=== PATIENT | female | born 1975 | race Caucasian/White ===

== ENCOUNTER → 2016-04-10 | Outpatient (REF) | payer OTHER ==
[2016-04-10 13:07] LABS: ALBUMIN 3.8 GM/DL (3.2-5.2); ALBUMIN/GLOBULIN RATIO 0.93 (1.00-1.93); ALKALINE PHOSPHATASE 83 U/L (45-117); ALT/SGPT 24 U/L (12-78); ANION GAP 13 MEQ/L (8-16); AST/SGOT 13 U/L (15-37); BILIRUBIN,TOTAL 0.3 MG/DL (0.2-1.0); BLOOD UREA NITROGEN 15 MG/DL (7-18); CALCIUM LEVEL 9.1 MG/DL (8.5-10.1); CARBON DIOXIDE LEVEL 25 MEQ/L (21-32); CHLORIDE LEVEL 104 MEQ/L (98-107); CHOLESTEROL LEVEL 176 MG/DL (<200); CREATININE FOR GFR 0.92 MG/DL (0.55-1.02); GLOMERULAR FILTRATION RATE > 60.0 (>58); GLUCOSE, FASTING 226 MG/DL (70-105); POTASSIUM SERUM 4.3 MEQ/L (3.5-5.1); SODIUM LEVEL 142 MEQ/L (136-145); TOTAL PROTEIN 7.9 GM/DL (6.4-8.2); TRIGLYCERIDES LEVEL 240 MG/DL (<150)
[2016-04-10 13:18] LABS: BASO % 0.4 % (0.0-1.0); EOS # 0.2 K/mm3 (0.0-0.50); EOS % 2.7 % (0.0-3.0); LARGE UNSTAINED CELL # 0.2 K/mm3 (0.0-0.4); LYMPH # 2.3 K/mm3 (1.5-4.5); LYMPH % 31.3 % (24.0-44.0); MEAN CORPUSCULAR HGB CONC 32.9 g/dl (32.0-36.5); MEAN CORPUSCULAR VOLUME 88.2 fl (80.0-96.0); MONO # 0.6 K/mm3 (0.0-0.8); MONO % 7.5 % (0.0-5.0); NEUTROPHILS # 4.2 K/mm3 (1.8-7.7); NEUTROPHILS % 56.1 % (36.0-66.0); PLATELET COUNT, AUTOMATED 335 k/mm3 (150-450); RED CELL DISTRIBUTION WIDTH 13.4 % (11.5-14.5); WHITE BLOOD COUNT 7.4 K/mm3 (4.0-10.0)
== END ==
LOC: M SFHCADAM 08:13
PROVIDERS: ATTEND Physician Assistant Medical
DX: E11.9 Type 2 diabetes mellitus without complications (principal)

== ENCOUNTER → 2016-07-13 | Outpatient (REF) | payer OTHER, SELFPAY ==
[2016-07-13 13:11] LABS: ALBUMIN 3.5 GM/DL (3.2-5.2); ALBUMIN/GLOBULIN RATIO 0.95 (1.00-1.93); ALKALINE PHOSPHATASE 67 U/L (45-117); ALT/SGPT 24 U/L (12-78); ANION GAP 9 MEQ/L (8-16); AST/SGOT 17 U/L (15-37); BILIRUBIN,TOTAL 0.3 MG/DL (0.2-1.0); BLOOD UREA NITROGEN 12 MG/DL (7-18); CALCIUM LEVEL 9.2 MG/DL (8.5-10.1); CARBON DIOXIDE LEVEL 28 MEQ/L (21-32); CHLORIDE LEVEL 106 MEQ/L (98-107); CREATININE FOR GFR 0.75 MG/DL (0.55-1.02); GLOMERULAR FILTRATION RATE > 60.0 (>58); GLUCOSE, FASTING 87 MG/DL (70-105); POTASSIUM SERUM 4.4 MEQ/L (3.5-5.1); SODIUM LEVEL 143 MEQ/L (136-145); TOTAL PROTEIN 7.2 GM/DL (6.4-8.2)
== END ==
LOC: M SFHCADAM 08:22
PROVIDERS: ATTEND Physician Assistant Medical
DX: E11.9 Type 2 diabetes mellitus without complications (principal)

== ENCOUNTER → 2016-07-16 | Outpatient (REF) | payer OTHER, SELFPAY | LOC: M LAB REF 17:06 | PROVIDERS: ATTEND Physician Assistant Medical | DX: R39.9 Unspecified symptoms and signs involving the genitourinary system (principal) ==

== ENCOUNTER → 2016-10-02 | Outpatient (REF) | payer OTHER ==
[~2016-10-02] MED LIST: ACET1TAB17 PO; AMLO10TA2 PO; ASPI81TA85 PO; CLAR10CA3 PO; DITR5TAB PO; HUMA100I3 SC; KETO10TAB PO; LISI40TAB PO; MACR100C43 PO; METF10004 PO; METO1TAB32 PO; NORCOTAB PO; OXYC1TAB23 PO; PERC5TAB12 PO; PROT20TA11 PO; SIMV40TA2 PO; TOPR50TA PO; TOUJ1.2I SC
== END ==
LOC: M LAB REF 16:27
PROVIDERS: ATTEND Physician Assistant Medical
DX: N39.0 Urinary tract infection, site not specified (principal)

== ENCOUNTER 2016-10-09 16:04 | Emergency (ER) | payer OTHER, SELFPAY ==
[~2016-10-09] VITALS: Ht 149.9 cm; Wt 103.1 kg
[2016-10-09] MEDS ORDERED: MACR100C43 PO (16:37)
[2016-10-09] MEDS ORDERED: HUMA100I3 SC (16:37)
[2016-10-09] MEDS ORDERED: METF10004 PO (16:37)
[2016-10-09] MEDS ORDERED: TOUJ1.2I SC (16:37)
[2016-10-09] MEDS ORDERED: PROT20TA11 PO (16:37)
[2016-10-09] MEDS ORDERED: CLAR10CA3 PO (16:37)
[2016-10-09] MEDS ORDERED: METO1TAB32 PO (16:37)
[2016-10-09] MEDS ORDERED: AMLO10TA2 PO (16:37)
[2016-10-09] MEDS ORDERED: SIMV40TA2 PO (16:37)
[2016-10-09] MEDS ORDERED: LISI40TAB PO (16:37)
[2016-10-09] MEDS ORDERED: ASPI81TA85 PO (16:37)
[2016-10-09] MEDS ORDERED: KETOROLAC 30 MG/ML VIAL (J1885) IV ONE (17:15)
[2016-10-09] MEDS ORDERED: NS 1,000 ML IV ONE (17:15)
[2016-10-09] MEDS ORDERED: ONDANSETRON 4MG/2ML VIAL (J2405) IV ONE (17:15)
[2016-10-09 17:31] LABS: BASO % 0.4 % (0.0-1.0); EOS # 0.2 K/mm3 (0.0-0.50); EOS % 2.5 % (0.0-3.0); LARGE UNSTAINED CELL # 0.1 K/mm3 (0.0-0.4); LARGE UNSTAINED CELL % 1.6 % (0.0-4.0); LYMPH # 2.6 K/mm3 (1.5-4.5); MEAN CORPUSCULAR HEMOGLOBIN 29.7 pg (27.0-33.0); MEAN CORPUSCULAR HGB CONC 33.6 g/dl (32.0-36.5); MEAN CORPUSCULAR VOLUME 88.3 fl (80.0-96.0); MONO # 0.4 K/mm3 (0.0-0.8); MONO % 5.6 % (0.0-5.0); NEUTROPHILS # 4.2 K/mm3 (1.8-7.7); NEUTROPHILS % 55.9 % (36.0-66.0); PLATELET COUNT, AUTOMATED 294 k/mm3 (150-450); RED CELL DISTRIBUTION WIDTH 13.1 % (11.5-14.5); WHITE BLOOD COUNT 7.6 K/mm3 (4.0-10.0)
[2016-10-09 17:59] LABS: ALBUMIN 3.7 GM/DL (3.2-5.2); ALKALINE PHOSPHATASE 83 U/L (45-117); ALT/SGPT 20 U/L (12-78); ANION GAP 10 MEQ/L (8-16); AST/SGOT 12 U/L (15-37); BILIRUBIN,DIRECT < 0.1 MG/DL (0.0-0.2); BILIRUBIN,TOTAL 0.2 MG/DL (0.2-1.0); BLOOD UREA NITROGEN 15 MG/DL (7-18); CALCIUM LEVEL 9.3 MG/DL (8.5-10.1); CARBON DIOXIDE LEVEL 27 MEQ/L (21-32); CHLORIDE LEVEL 101 MEQ/L (98-107); CREATININE FOR GFR 0.87 MG/DL (0.55-1.02); GLOMERULAR FILTRATION RATE > 60.0 (>58); GLUCOSE, FASTING 230 MG/DL (70-105); POTASSIUM SERUM 4.1 MEQ/L (3.5-5.1); SODIUM LEVEL 138 MEQ/L (136-145); TOTAL PROTEIN 7.4 GM/DL (6.4-8.2)
--- NOTE | 2016-10-09 18:25 | REP ---
CT abdomen pelvis without contrast: 10/09/2016: Comparison: 02/11/2016. Clinical history: Left flank pain. History of renal calculus. Findings: Noncontrast renal stone protocol was utilized. CT abdomen: Lung bases clear. Heart not enlarged. as no pericardial thickening or effusion. Some mild fatty infiltration of the liver but no gross hepatosplenomegaly. Gallbladder shows no calcified stone or mass. There is no biliary dilatation or ascites in the upper abdomen. Pancreas unremarkable. Adrenal glands intact. Stomach without hiatal hernia, collapsed, appendix and right colon to distal left colon were unremarkable. Small bowel loops unremarkable. Lung window review of all CT slice levels shows no free air or sign of abscess. The aorta is without aneurysm has as a few calcifications distally. No periaortic other retroperitoneal lymphadenopathy. There is lobation of both kidneys. The tiny calcifications in pyramids and lower pole on the right kidney lobation, but no hydronephrosis, hydroureter or ureteral stone/dilatation on the right. The left kidney shows that the 13 mm stone on the February 2016 study has moved from the lower pole to the renal pelvis and is now almost 17 mm. It is still is not causing any significant hydronephrosis. I do not see hydroureter or ureteral stone on that left side. The bone windows show degenerative disc changes at L5, S1 with vacuum phenomenon and posterior osteophytes, disc bulge. Lower thoracic levels were intact. Visualized ribs were intact. CT pelvis: The bony hips, pelvis, sacrum, SI joints and lumbosacral junction were normal for age with very minimal degenerative changes of the hips. Bladder without wall thickening, stone or mass, ureteral dilatation or stone. Uterus anteverted, not enlarged and no adnexal mass or pelvic free fluid. Distal left colon, sigmoid and rectum without colitis or diverticulitis. No pelvic lymphadenopathy. No ventral or inguinal hernia nor pathologic inguinal adenopathy. Appendix is seen and normal. Impression: 1. There is a 17 mm stone now arranged horizontally in the renal pelvis on the left kidney previously was more vertically oriented, in the lower pole and measured 13 mm. No hydronephrosis or hydroureter on either side. No definite collecting system stones on the right with a couple of tiny pyramid stones. 2. No colitis, diverticulitis, stricture or mass. Appendix seen and normal. Solid organs upper abdomen are unremarkable. Gallbladder without calcified stone or mass and no other significant finding. Signed by Marco A Hodge MD 10/09/2016 09:27 P
[2016-10-09] MEDS ORDERED: NORCOTAB PO (18:33)
[2016-10-09] MEDS ORDERED: KETO10TAB PO (18:33)
[2016-10-09 19:39] VITALS: BP 107/63
[2016-10-09] MEDS ORDERED: NORCO, ANEXSIA 5/325MG TABLET (HYDROcodone/ACETAMINOPHEN) PO ONE (20:00)
[2016-11-03] MEDS ORDERED: TOPR50TA PO (13:26)
== END 2016-10-09 19:55 | disposition home or self-care (01) ==
LOC: M ED 16:04
DX: N20.0 Calculus of kidney (principal); E11.9 Type 2 diabetes mellitus without complications; I10 Essential (primary) hypertension; Z87.442 Personal history of urinary calculi; Z87.891 Personal history of nicotine dependence; Z79.82 Long term (current) use of aspirin; Z79.4 Long term (current) use of insulin; Z79.899 Other long term (current) drug therapy
CPT/HCPCS: 74176; 80048; 80076; 81001; 83690; 85025; 96374; 96375; 99283; J1885; J2405

== ENCOUNTER → 2016-10-18 | Outpatient (REF) | payer OTHER | LOC: M SMT 13:01 | PROVIDERS: ATTEND Nurse Practitioner Women's Health | DX: Z01.818 Encounter for other preprocedural examination (principal); N20.0 Calculus of kidney ==

== ENCOUNTER → 2016-11-02 | Outpatient (CLI) | payer OTHER ==
[2016-11-02 13:06] LABS: MEAN CORPUSCULAR HEMOGLOBIN 29.3 pg (27.0-33.0); MEAN CORPUSCULAR HGB CONC 33.7 g/dl (32.0-36.5); MEAN CORPUSCULAR VOLUME 87.1 fl (80.0-96.0); RED CELL DISTRIBUTION WIDTH 13.3 % (11.5-14.5); WHITE BLOOD COUNT 7.1 K/mm3 (4.0-10.0)
[2016-11-02 13:11] LABS: INR 0.97
--- NOTE | 2016-11-02 13:25 | ECGEPIP ---
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
--- NOTE | 2016-11-02 13:29 | REP ---
CHEST X-RAY: TWO VIEWS. HISTORY: Kidney calculus. COMPARISON CHEST X-RAY: September 11, 2015 FINDINGS: The lungs are well inflated and clear. The pleural angles are sharp. Heart size is normal. Pulmonary vasculature is not increased. There are some degenerative changes in the thoracic spine. IMPRESSION: No active disease. Signed by Bola Vang MD 11/02/2016 02:04 P
[2016-11-02 13:43] LABS: ANION GAP 10 MEQ/L (8-16); BLOOD UREA NITROGEN 13 MG/DL (7-18); CARBON DIOXIDE LEVEL 27 MEQ/L (21-32); CHLORIDE LEVEL 105 MEQ/L (98-107); CREATININE FOR GFR 0.86 MG/DL (0.55-1.02); GLOMERULAR FILTRATION RATE > 60.0 (>58); GLUCOSE, FASTING 207 MG/DL (70-105); POTASSIUM SERUM 4.2 MEQ/L (3.5-5.1); SODIUM LEVEL 142 MEQ/L (136-145)
== END ==
LOC: M LAB 12:27
PROVIDERS: ATTEND Nurse Practitioner Women's Health
DX: Z01.818 Encounter for other preprocedural examination (principal); N20.0 Calculus of kidney

== ENCOUNTER 2016-11-16 21:35 | Emergency (ER) | payer OTHER ==
[~2016-11-16] VITALS: Ht 149.9 cm; Wt 99.5 kg
[~2016-11-16 21:35] MED LIST changes: -ACET1TAB17 PO; -DITR5TAB PO; -OXYC1TAB23 PO; -PERC5TAB12 PO
[2016-11-16] MEDS ORDERED: NS 1,000 ML IV ONE (23:15)
[2016-11-16] MEDS ORDERED: ONDANSETRON 4MG/2ML VIAL (J2405) IV ONE (23:15)
[2016-11-16] MEDS ORDERED: MORPHINE 4 MG/ML 1ML SYRINGE IV ONE (23:15)
[2016-11-16 23:32] LABS: BASO % 0.3 % (0.0-1.0); EOS # 0.1 K/mm3 (0.0-0.50); LARGE UNSTAINED CELL # 0.1 K/mm3 (0.0-0.4); LARGE UNSTAINED CELL % 1.1 % (0.0-4.0); LYMPH # 2.2 K/mm3 (1.5-4.5); LYMPH % 21.2 % (24.0-44.0); MEAN CORPUSCULAR HGB CONC 32.4 g/dl (32.0-36.5); MEAN CORPUSCULAR VOLUME 89.5 fl (80.0-96.0); MONO # 0.6 K/mm3 (0.0-0.8); MONO % 6.2 % (0.0-5.0); NEUTROPHILS % 70.3 % (36.0-66.0); PLATELET COUNT, AUTOMATED 317 k/mm3 (150-450); RED CELL DISTRIBUTION WIDTH 13.7 % (11.5-14.5); WHITE BLOOD COUNT 9.9 K/mm3 (4.0-10.0)
[2016-11-17 00:16] LABS: CALCIUM LEVEL 9.2 MG/DL (8.5-10.1); CREATININE FOR GFR 1.31 MG/DL (0.55-1.02); GLOMERULAR FILTRATION RATE 47.4 (>58); POTASSIUM SERUM 4.5 MEQ/L (3.5-5.1)
[2016-11-17] MEDS ORDERED: ONDANSETRON 4 MG ORAL DISINTEGRATING TAB (S0181) PO ONE (00:45)
[2016-11-17] MEDS ORDERED: OXYCODONE/APAP 5MG/325MG(BULK FOR ED) 1 TABLET PO ONE (00:45)
[2016-11-17 00:56] VITALS: BP 143/88
[2016-11-17] MEDS ORDERED: PERC5TAB12 PO (10:22)
--- NOTE | 2016-11-17 11:12 | REP ---
Clinical: Status post stent. Technique: Two supine views of the abdomen and pelvis. Findings: A left ureteral stent extends from the bladder and is externalized through the kidney via left flank. The bowel gas pattern is nonspecific. No obvious ureteral or renal calculi are identified. Skeletal structures are intact. Impression: Left ureteral stent. Signed by Tom Lopez MD 11/17/2016 08:41 A
[2016-11-18] MEDS ORDERED: DITR5TAB PO (11:22)
[2016-11-18] MEDS ORDERED: ACET1TAB17 PO (11:22)
[2016-11-18] MEDS ORDERED: OXYC1TAB23 PO (11:22)
== END 2016-11-17 00:59 | disposition home or self-care (01) ==
LOC: M ED 21:35
DX: N32.89 Other specified disorders of bladder (principal); N20.0 Calculus of kidney; I10 Essential (primary) hypertension; E11.9 Type 2 diabetes mellitus without complications; F33.9 Major depressive disorder, recurrent, unspecified; F41.9 Anxiety disorder, unspecified; Z79.899 Other long term (current) drug therapy; Z79.4 Long term (current) use of insulin; Z79.82 Long term (current) use of aspirin; Z79.52 Long term (current) use of systemic steroids
CPT/HCPCS: 74000; 80048; 81001; 85025; 87086; 96374; 99283; J2405

== ENCOUNTER 2016-11-17 10:03 | Inpatient (IN) | payer OTHER ==
[~2016-11-17] VITALS: Ht 149.9 cm; Wt 101.6 kg
[~2016-11-17 10:03] MED LIST changes: +GLYCOPYRROLATE INJ 0.2 MG/ML 2 ML VIAL As Ordered ONE; +LIDOCAINE 2% INJ 100 MG/5 ML SDV (FOR ANES.) As Ordered ONE; +LISINOPRIL 40 MG TAB PO SCH; +MIDAZOLAM INJ 2 MG/2 ML VIAL (J2250) As Ordered ONE; +NEOSTIGMINE 1MG/ML 5 ML SYRINGE (J2710) As Ordered ONE; +ONDANSETRON 4MG/2ML VIAL (J2405) As Ordered ONE; +PROPOFOL 200 MG/20 ML VIAL As Ordered ONE; +ROCURONIUM BROMIDE 50 MG/5 ML VIAL/SYRINGE As Ordered ONE; +SIMVASTATIN 40 MG TAB PO SCH; +fentaNYL 100 MCG/2 ML INJECTION (J3010) As Ordered ONE
[2016-11-17] MEDS ORDERED: LIDOCAINE 1% MDV 20ML VIAL SQ ONE (10:15)
[2016-11-17] MEDS ORDERED: LR 1,000 ML IV ONE (10:15)
[2016-11-17] MEDS ORDERED: PERC5TAB12 PO (10:22)
[2016-11-17] MEDS ORDERED: MORPHINE 2 MG/ML 1ML SYRINGE As Ordered ONE (10:29)
[2016-11-17 10:36] LABS: CONTROL LINE UCG INT CTR LINE PRESENT
[2016-11-17] MEDS ORDERED: HumaLOG INSULIN (NovoLOG) PER UNIT As Ordered ONE (10:43)
[2016-11-17] MEDS ORDERED: MORPHINE 2 MG/ML 1ML SYRINGE IV ONE ×2 (10:45→11:00)
[2016-11-17] MEDS ORDERED: METOPROLOL TART 25 MG TABLET As Ordered ONE (10:45)
[2016-11-17] MEDS ORDERED: METOPROLOL SUCC *XL* 25MG TAB (TopROL *XL*) As Ordered ONE (10:48)
[2016-11-17] MEDS ORDERED: METOPROLOL SUCC (TopROL XL) 50MG **XL** TAB PO ONE (11:00)
[2016-11-17] MEDS ORDERED: METOPROLOL SUCC *XL* 25MG TAB (TopROL *XL*) PO ONE (11:00)
[2016-11-17] MEDS ORDERED: HumaLOG INSULIN (NovoLOG) PER UNIT SC ONE (11:00)
[2016-11-17] MEDS ORDERED: CONRAY-60 60% 50ML VIAL (Q9961) As Ordered ONE (12:05)
[2016-11-17] MEDS ORDERED: GLUCOSE 4 GM CHEW TABLET PO PRN (12:30)
[2016-11-17] MEDS ORDERED: GLUCAGON FOR INJ 1 MG VIAL (J1610) SC PRN (12:30)
[2016-11-17] MEDS ORDERED: PERCOCET 5MG/325MG TAB PO PRN ×2 (12:30→15:00)
[2016-11-17] MEDS ORDERED: DEXTROSE 50% 50 ML SYRINGE IV PRN (12:30)
[2016-11-17] MEDS ORDERED: MORPHINE 2 MG/ML 1ML SYRINGE IV PRN (12:30)
[2016-11-17] MEDS ORDERED: ACETAMINOPHEN TAB 650MG DOSE (2X325MG) PO PRN (12:30)
[2016-11-17] MEDS ORDERED: HYDROmorphone HCL 2 MG/ML 1ML VIAL (J1170) As Ordered ONE (13:18)
[2016-11-17] MEDS ORDERED: METOCLOPRAMIDE INJ 10MG/2ML VIAL (J2765) As Ordered ONE (14:44)
[2016-11-17 14:47] LABS: MEAN CORPUSCULAR HEMOGLOBIN 28.3 pg (27.0-33.0); MEAN CORPUSCULAR HGB CONC 31.7 g/dl (32.0-36.5); MEAN CORPUSCULAR VOLUME 89.3 fl (80.0-96.0); RED CELL DISTRIBUTION WIDTH 13.7 % (11.5-14.5)
[2016-11-17] MEDS ORDERED: LR 1,000 ML IV SCH (15:00)
[2016-11-17] MEDS ORDERED: METOCLOPRAMIDE INJ 10MG/2ML VIAL (J2765) IV PRN (15:00)
[2016-11-17] MEDS ORDERED: ONDANSETRON 4MG/2ML VIAL (J2405) IV PRN (15:00)
[2016-11-17] MEDS ORDERED: fentaNYL 100 MCG/2 ML INJECTION (J3010) IV PRN (15:00)
[2016-11-17 15:04] LABS: CALCIUM LEVEL 8.6 MG/DL (8.5-10.1); CREATININE FOR GFR 1.3 MG/DL (0.55-1.02); GLOMERULAR FILTRATION RATE 47.8 (>58); POTASSIUM SERUM 4.4 MEQ/L (3.5-5.1)
[2016-11-17] MEDS: HYDROmorphone HCL 1 MG/ML SYRINGE (J1170) IV PRN ×2 (15:10→15:33)
[2016-11-17] MEDS ORDERED: diphenhydrAMINE INJ 50MG/ML VIAL (J1200) IV PRN (15:15)
--- NOTE | 2016-11-17 15:21 | REP ---
PYELOGRAM: HISTORY: Left renal stone. 1 minute 56 seconds of fluoroscopy time is reported. FINDINGS: A sequence of six fluoroscopically obtained last image hold spot radiographs of the abdomen document percutaneous nephro-ureterogram and large tract stone extraction access. A ureteral stent is noted in place on the final film. No laterality markers are visible. Signed by Bola Vang MD 11/17/2016 04:38 P
[2016-11-17] MEDS: NS 1,000 ML IV SCH ×2 (16:50→19:48)
[2016-11-17] MEDS: ONDANSETRON 4MG/2ML VIAL (J2405) IV PRN (16:50)
--- NOTE | 2016-11-17 16:58 | RO ---
DATE OF PROCEDURE: 11/17/2016 PREPROCEDURE DIAGNOSIS: Left kidney stone. POSTPROCEDURE DIAGNOSIS: Left kidney stone. PROCEDURE: Left percutaneous nephrolithotomy, left antegrade nephrostogram, left ureteral stent placement. SURGEON: Finn Miller MD COLLECTIONS AND ARCHIVES DIRECTOR: None. ANESTHESIA: General. OPERATIVE INDICATIONS: This is a 41-year-old female who was found to have an approximately 1.7 cm left renal pelvic stone. She previously had a left nephroureteral stent placed. She was brought to the operating room today for the above listed procedure. DESCRIPTION OF PROCEDURE: Patient was brought to the operating room and general anesthesia was induced. Prophylactic antibiotics were infused. She then had a Carlos catheter placed under sterile conditions. She was then placed in the prone position with all pressure points appropriately padded. She was then prepped and draped in the usual sterile fashion in preparation for a left percutaneous nephrolithotomy. The previously placed left nephroureteral stent was then utilized to advance a Super Stiff Guidewire down the left collecting system. The nephroureteral stent was then removed leaving the wire in place. Next, an approximately 3-4 cm skin incision was made adjacent to the wire. I then advanced a dual lumen ureteral catheter over the wire into the left collecting system. An antegrade nephrostogram was performed and was negative for extravasation. It was notable for a the filling defect associated with the stone. Of note, the stone was radiolucent. At this point, the other lumen of the catheter was utilized to advance a Sensor wire down the left collecting system. The dual lumen ureteral catheter was then removed leaving both wires in place. The Sensor was then secured to the drape to serve as a safety wire. We then utilized the Super Stiff wire to advance a balloon dilator down into the left renal pelvis. The balloon was then inflated and left in place for a few seconds. We then advanced an access sheath over the balloon into the left collecting system. The balloon was then let down and removed leaving the access sheath and the wire in place. Next, we went in the access sheath with the nephroscope and the kidney was thoroughly examined and a large stone was seen in the renal pelvis. The stone was then fragmented into several small pieces and suctioned out using a CyberWand. We then examined the kidney thoroughly with the nephroscope as well as a flexible cystoscope and no additional stone fragments were seen. At this point, the nephroscope was removed and a 7 Guamanian x 22-32 cm JJ ureteral stent was advanced over the wire down into the left collecting system. The wire was then removed and there were adequate curls of the stent in the left renal pelvis and in the bladder. At this point, the access sheath was then removed and the Sensor wire was utilized to advance an 18 [place]ian [place] tip catheter into the left renal pelvis. The balloon was then inflated with about 3 mL of contrast. The wire was then removed and an antegrade nephrostogram was shot through the [place] tip catheter and it was negative for extravasation. It confirmed that the [place] catheter was in the correct place. The [place] tip catheter was then set to gravity drainage and was secured to the skin with a #3-0 silk suture. Dressings were then applied and this marked conclusion of the procedure. The patient was then taken out of the prone position, awakened from anesthesia and transported to the recovery room in stable condition. ESTIMATED BLOOD LOSS: 50 mL. COMPLICATIONS: None. SPECIMENS: Kidney stone fragments. PLAN: The patient will be admitted to the hospital overnight. She will likely have her nephrostomy catheter and Carlos removed tomorrow. She will be discharged him with a stent in place for the next 2-3 weeks. RUDY
[2016-11-17] MEDS: LORATADINE 10 MG TAB PO SCH (17:02)
[2016-11-17] MEDS: DOCUSATE SODIUM 100 MG CAP PO SCH ×2 (17:03→21:44)
[2016-11-17] MEDS: METOPROLOL SUCC (TopROL XL) 50MG **XL** TAB PO SCH (17:03)
[2016-11-17 17:08] VITALS: BP 168/78
[2016-11-17] MEDS ORDERED: SIMVASTATIN 40 MG TAB PO SCH ×2 (17:08→21:00)
[2016-11-17] MEDS: PANTOPRAZOLE 40MG TAB (PROTONIX) PO SCH ×2 (17:10→21:44)
[2016-11-17 17:30] VITALS: BP 153/79
[2016-11-17] MEDS ORDERED: PROMETHAZINE INJ 25 MG/ML VIAL (J2550) IV PRN (18:15)
[2016-11-17 18:30] VITALS: BP 144/81
[2016-11-17] MEDS: HumaLOG INSULIN (NovoLOG) PER UNIT SC SCH (18:32)
[2016-11-17] MEDS: amLODIPine 10 MG TAB PO SCH (18:33)
[2016-11-17] MEDS: ceFAZolin SOD 1 GM in D5W MINI-BAG PLUS 50 ML IV SCH (19:48)
[2016-11-17] MEDS: PERCOCET 5MG/325MG TAB PO PRN (19:48)
[2016-11-17] MEDS ORDERED: LISINOPRIL 40 MG TAB PO SCH (21:00)
[2016-11-17 22:00] VITALS: BP 134/77
[2016-11-17] MEDS: oxyBUTYnin 5 MG TAB PO PRN (22:55)
[2016-11-18] MEDS: NS 1,000 ML IV SCH (01:48)
[2016-11-18] MEDS: ceFAZolin SOD 1 GM in D5W MINI-BAG PLUS 50 ML IV SCH (05:21)
[2016-11-18] MEDS: PERCOCET 5MG/325MG TAB PO PRN ×3 (05:21→14:53)
[2016-11-18] MEDS: ONDANSETRON 4MG/2ML VIAL (J2405) IV PRN (05:22)
[2016-11-18 05:58] LABS: MEAN CORPUSCULAR HEMOGLOBIN 29.4 pg (27.0-33.0); MEAN CORPUSCULAR HGB CONC 33.2 g/dl (32.0-36.5); MEAN CORPUSCULAR VOLUME 88.5 fl (80.0-96.0); RED CELL DISTRIBUTION WIDTH 13.8 % (11.5-14.5); WHITE BLOOD COUNT 8.6 K/mm3 (4.0-10.0)
[2016-11-18 06:00] VITALS: BP 116/55
[2016-11-18 06:31] LABS: ANION GAP 9 MEQ/L (8-16); BLOOD UREA NITROGEN 11 MG/DL (7-18); CALCIUM LEVEL 8.2 MG/DL (8.5-10.1); CARBON DIOXIDE LEVEL 24 MEQ/L (21-32); CHLORIDE LEVEL 112 MEQ/L (98-107); CREATININE FOR GFR 0.94 MG/DL (0.55-1.02); GLOMERULAR FILTRATION RATE > 60.0 (>58); GLUCOSE, FASTING 154 MG/DL (70-105); POTASSIUM SERUM 3.7 MEQ/L (3.5-5.1); SODIUM LEVEL 145 MEQ/L (136-145)
[2016-11-18] MEDS: HumaLOG INSULIN (NovoLOG) PER UNIT SC SCH ×2 (08:19→12:46)
[2016-11-18 08:20] VITALS: BP 116/55
[2016-11-18] MEDS: amLODIPine 10 MG TAB PO SCH (08:20)
[2016-11-18] MEDS: DOCUSATE SODIUM 100 MG CAP PO SCH (08:20)
[2016-11-18] MEDS: LORATADINE 10 MG TAB PO SCH (08:20)
[2016-11-18] MEDS: METOPROLOL SUCC (TopROL XL) 50MG **XL** TAB PO SCH (08:20)
[2016-11-18] MEDS: PANTOPRAZOLE 40MG TAB (PROTONIX) PO SCH (08:20)
--- NOTE | 2016-11-18 09:57 | IPNPDOC ---
Assessment/Plan Date Seen The patient was seen on 11/18/16. Patient Summary This is a 41 y/o F POD1 s/p left PCNL, doing well. Her Hb is stable. Cr is trending down. UOP has been very good. Plan/VTE VTE Prophylaxis Ordered?: Yes VTE Exclusion Mechanical Proph: N/A:VTE Prophy Ordered Plan/Urinary Catheter Urinary Catheter: D/C Harris (d/c harris in 1 hr if urine remains pink or clearer ) Plan - left nephrostomy catheter removed - d/c harris in 1 hr if urine remains pink or clearer - d/c IVF - ambulate - percocet prn pain - encourage fluids - strict I/Os - SCDs - discharge home later after patient voids Subjective Review oF Systems Chief Complaint The patient is a 41-year-old female admitted with a reason for visit of Left Renal Stone. Events since Last Encounter No acute events. Patient had nausea and a small emesis last night, but nausea has resolved this morning. Her pain is well controlled. The majority of her discomfort is from the catheter. She is tolerating a regular diet. No f/c/ns. Objective Physical Examination General Exam: Alert, Cooperative ENT EXAM: Atraumatic Skin Exam: Nl turgor and temperature Neuro Exam: Normal Speech Psych Exam: Mental status NL, Mood NL Other physical findings left nephrostomy catheter in place draining red urine; harris catheter in place draining pink urine Vital Signs/I&O Vital Signs Date Time Temp Pulse Resp B/P (MAP) Pulse Ox O2 Delivery O2 Flow Rate FiO2 11/18/16 08:27 Room Air 11/18/16 08:20 91 116/55 11/18/16 06:00 98.4 18 95 11/17/16 22:00 2.0 I&O- Last 24 Hours up to 6 AM 11/18/16 06:00 Intake Total 2480 ml Output Total 1950 ml Balance 530 ml Laboratory Data Labs 24H Laboratory Tests 2 11/17/16 10:20: Urine Test NEGATIVE 11/17/16 10:27: Bedside Glucose (Misc Panel) 335H 11/17/16 14:29: Anion Gap 7L, Glomerular Filtration Rate 47.8L, Blood Urea Nitrogen 16, Creatinine 1.30H, Sodium Level 142, Potassium Level 4.4, Chloride Level 108H, Carbon Dioxide Level 27, Calcium Level 8.6 11/17/16 17:48: Bedside Glucose (Misc Panel) 254H 11/17/16 21:19: Bedside Glucose (Misc Panel) 236H 11/18/16 05:45: Anion Gap 9, Glomerular Filtration Rate > 60.0, Blood Urea Nitrogen 11, Creatinine 0.94, Sodium Level 145, Potassium Level 3.7, Chloride Level 112H, Carbon Dioxide Level 24, Calcium Level 8.2L CBC/BMP Laboratory Tests 11/17/16 14:29 Red Blood Count 3.70 L, Mean Corpuscular Volume 89.3, Mean Corpuscular Hemoglobin 28.3, Mean Corpuscular Hemoglobin Concent 31.7 L, Red Cell Distribution Width 13.7, Calcium Level 8.6 11/18/16 05:45 Red Blood Count 3.46 L, Mean Corpuscular Volume 88.5, Mean Corpuscular Hemoglobin 29.4, Mean Corpuscular Hemoglobin Concent 33.2, Red Cell Distribution Width 13.8, Calcium Level 8.2 L FSBS Laboratory Tests Test 11/17/16 10:27 11/17/16 17:48 11/17/16 21:19 Range/Units Bedside Glucose (Misc Panel) 335 254 236 70-105 MG/DL ALYCIA JACKSON MD Nov 18, 2016 09:57
[2016-11-18 10:00] VITALS: BP 104/58
[2016-11-18] MEDS ORDERED: OXYC1TAB23 PO (11:22)
[2016-11-18] MEDS ORDERED: DITR5TAB PO (11:22)
[2016-11-18] MEDS ORDERED: ACET1TAB17 PO (11:22)
[2016-11-18 14:00] VITALS: BP 132/87
[2016-11-18] MEDS: oxyBUTYnin 5 MG TAB PO PRN (15:33)
--- NOTE | 2016-11-20 18:12 | DSES ---
DATE OF ADMISSION: 11/17/2016 DATE OF DISCHARGE: 11/18/2016 ADMISSION DIAGNOSIS: Left kidney stone. DISCHARGE DIAGNOSIS: Left kidney stone. ADMITTING PHYSICIAN: Finn Miller MD DISCHARGING PHYSICIAN: Finn Miller MD PROCEDURE PERFORMED: Left percutaneous nephrolithotomy. HISTORY OF PRESENT ILLNESS: This is a 41-year-old female who was found to have a very large left kidney stone and she was admitted to the hospital after undergoing the above-listed procedure. HOSPITALIZATION COURSE: The patient was admitted to the hospital after undergoing the above-listed procedure. Her postoperative course was notable for nausea and vomiting the night of her procedure. By postoperative day #1, the nausea had improved and she was tolerating a regular diet. Her pain was better controlled on postoperative day #1. All of her labs were within acceptable limits. On postoperative day #1, her left nephrostomy catheter was removed. Subsequently, her Carlos catheter was removed and she voided without any difficulty. She ambulated well that day. Since she was doing well, she was deemed ready for discharge. She was, therefore, discharged home on postoperative day #1 with the plan to return to the clinic in a few weeks for stent removal. RUDY
== END 2016-11-18 16:09 | disposition home or self-care (01) | DRG 443 ==
LOC: M OR 10:03 → M MS5PR 16:30
PROVIDERS: ADMIT Urology; ATTEND Urology
PROC: 0TC14ZZ Extirpation of Matter from Left Kidney, Percutaneous Endoscopic Approach (ICD-10-PCS; principal; 2016-11-17 13:20)
DX: N20.0 Calculus of kidney (principal)

== ENCOUNTER 2017-03-29 09:41 | Emergency (ER) | payer OTHER ==
[2017-03-29 10:22] LABS: BASO % 0.3 % (0.0-1.0); EOS # 0.1 10^3/uL (0.0-0.50); EOS % 0.8 % (0.0-3.0); HEMATOCRIT 35.9 % (36.0-47.0); HEMOGLOBIN 11.4 g/dl (12.0-16.0); IMMATURE GRANULOCYTE % 0.4 % (0-0); LYMPH # 1.6 10^3/uL (1.5-4.5); LYMPH % 17.8 % (24.0-44.0); MEAN CORPUSCULAR HEMOGLOBIN 26.4 pg (27.0-33.0); MEAN CORPUSCULAR HGB CONC 31.8 g/dl (32.0-36.5); MEAN CORPUSCULAR VOLUME 83.1 fl (80.0-96.0); MONO # 0.4 10^3/uL (0.0-0.8); MONO % 4.4 % (0.0-5.0); NEUTROPHILS % 76.3 % (36.0-66.0); PLATELET COUNT, AUTOMATED 296 10^3/uL (150-450); RED BLOOD COUNT 4.32 10^6/uL (4.00-5.40); RED CELL DISTRIBUTION WIDTH 15.3 % (11.5-14.5); WHITE BLOOD COUNT 9.1 10^3/uL (4.0-10.0)
[2017-03-29 10:54] LABS: ALBUMIN 3.8 GM/DL (3.2-5.2); ALBUMIN/GLOBULIN RATIO 0.88 (1.00-1.93); ALKALINE PHOSPHATASE 70 U/L (45-117); ALT/SGPT 17 U/L (12-78); ANION GAP 8 MEQ/L (8-16); AST/SGOT 16 U/L (7-37); BILIRUBIN,DIRECT < 0.1 MG/DL (0.0-0.2); BILIRUBIN,TOTAL 0.3 MG/DL (0.2-1.0); BLOOD UREA NITROGEN 12 MG/DL (7-18); CALCIUM LEVEL 8.7 MG/DL (8.5-10.1); CARBON DIOXIDE LEVEL 25 MEQ/L (21-32); CHLORIDE LEVEL 106 MEQ/L (98-107); CPK CREATINE PHOSPHOKINASE 88 U/L (26-192); CREATININE FOR GFR 0.92 MG/DL (0.55-1.02); FREE T4 0.91 NG/DL (0.76-1.46); GLOMERULAR FILTRATION RATE > 60.0 (>58); GLUCOSE, FASTING 171 MG/DL (70-105); POTASSIUM SERUM 3.6 MEQ/L (3.5-5.1); SODIUM LEVEL 139 MEQ/L (136-145); TOTAL PROTEIN 8.1 GM/DL (6.4-8.2); TROPONIN I < 0.02 NG/ML (< 0.10)
[2017-03-29] MEDS ORDERED: ISOVUE-370 76% 100ML VIAL (Q9967) As Ordered (10:54)
[2017-03-29 10:56] LABS: D-DIMER QUANT 380.5 ng/ml (<500)
[2017-03-29 10:59] LABS: MB/CK RELATIVE INDEX 1.13 (< OR =4)
[2017-03-29 13:01] LABS: CK-MB VALUE MASS 1.1 NG/ML (0.0-3.6); CPK CREATINE PHOSPHOKINASE 87 U/L (26-192); MB/CK RELATIVE INDEX 1.26 (< OR =4); TROPONIN I < 0.02 NG/ML (< 0.10)
== END 2017-03-29 15:10 | disposition home or self-care (01) ==
LOC: M ED 09:41
DX: R07.89 Other chest pain (principal); R20.9 Unspecified disturbances of skin sensation; R00.0 Tachycardia, unspecified; M54.2 Cervicalgia; R11.0 Nausea; E11.9 Type 2 diabetes mellitus without complications; I10 Essential (primary) hypertension; E78.5 Hyperlipidemia, unspecified; F41.9 Anxiety disorder, unspecified; F32.9 Major depressive disorder, single episode, unspecified; K76.0 Fatty (change of) liver, not elsewhere classified; Z87.891 Personal history of nicotine dependence; Z79.899 Other long term (current) drug therapy; Z79.4 Long term (current) use of insulin; Z79.82 Long term (current) use of aspirin
CPT/HCPCS: Q9967

== ENCOUNTER → 2017-04-26 | Outpatient (REF) | payer OTHER ==
[2017-04-26 12:40] LABS: BASO % 0.6 % (0.0-1.0); EOS # 0.2 10^3/uL (0.0-0.50); EOS % 2.6 % (0.0-3.0); HEMATOCRIT 35.8 % (36.0-47.0); HEMOGLOBIN 11.3 g/dl (12.0-16.0); IMMATURE GRANULOCYTE % 0.3 % (0-3.0); LYMPH # 2.2 10^3/uL (1.5-4.5); LYMPH % 30.9 % (24.0-44.0); MEAN CORPUSCULAR HEMOGLOBIN 27.1 pg (27.0-33.0); MEAN CORPUSCULAR HGB CONC 31.6 g/dl (32.0-36.5); MEAN CORPUSCULAR VOLUME 85.9 fl (80.0-96.0); MONO # 0.5 10^3/uL (0.0-0.8); MONO % 6.4 % (0.0-5.0); NEUTROPHILS # 4.3 10^3/uL (1.8-7.7); NEUTROPHILS % 59.2 % (36.0-66.0); PLATELET COUNT, AUTOMATED 327 10^3/uL (150-450); RED BLOOD COUNT 4.17 10^6/uL (4.00-5.40); RED CELL DISTRIBUTION WIDTH 15.7 % (11.5-14.5); WHITE BLOOD COUNT 7.2 10^3/uL (4.0-10.0)
[2017-04-26 13:06] LABS: FOLATE 14.5 NG/ML; VITAMIN B12 LEVEL 325 PG/ML
[2017-04-26 13:35] LABS: ALBUMIN 3.8 GM/DL (3.2-5.2); ALBUMIN/GLOBULIN RATIO 0.95 (1.00-1.93); ALKALINE PHOSPHATASE 78 U/L (45-117); ALT/SGPT 20 U/L (12-78); AMYLASE 45 U/L (25-115); AST/SGOT 25 U/L (7-37); BILIRUBIN,DIRECT < 0.1 MG/DL (0.0-0.2); BILIRUBIN,TOTAL 0.2 MG/DL (0.2-1.0); FERRITIN 10 NG/ML (8-252); IRON (FE) 47 UG/DL (50-170); LIPASE 155 U/L (73-393); PERCENT SATURATION 12.3 % (13.2-45.0); TOTAL IRON BINDING CAPACITY 383 UG/DL (250-450); TOTAL PROTEIN 7.8 GM/DL (6.4-8.2)
[2017-04-28 00:06] LABS: TISSUE TRANSGLUTAMINASE IgA <2 U/mL (0-3)
== END ==
LOC: M SFHCADAM 08:35
DX: E11.9 Type 2 diabetes mellitus without complications (principal); K21.9 Gastro-esophageal reflux disease without esophagitis; D64.9 Anemia, unspecified
CPT/HCPCS: 82746

== ENCOUNTER 2017-05-28 11:26 | Day surgery (SDC) | payer OTHER ==
[2017-05-28] MEDS ORDERED: fentaNYL 100 MCG/2 ML INJECTION (J3010) As Ordered (13:00)
[2017-05-28 13:08] LABS: BEDSIDE GLUCOSE 231 MG/DL (70-105)
[2017-05-28] MEDS ORDERED: NS 1,000 ML IV (13:30)
[2017-05-28] MEDS ORDERED: LIDOCAINE 2% INJ 100 MG/5 ML SDV (FOR ANES.) As Ordered (14:22)
[2017-05-28] MEDS ORDERED: PROPOFOL 200 MG/20 ML VIAL As Ordered (14:22)
== END 2017-05-28 15:50 | disposition home or self-care (01) ==
LOC: M OPP 11:26
DX: R10.13 Epigastric pain (principal); D64.9 Anemia, unspecified; K29.70 Gastritis, unspecified, without bleeding; I10 Essential (primary) hypertension; E78.5 Hyperlipidemia, unspecified; E11.9 Type 2 diabetes mellitus without complications; K21.9 Gastro-esophageal reflux disease without esophagitis; R12 Heartburn; M54.5 Low back pain; F41.9 Anxiety disorder, unspecified; F32.9 Major depressive disorder, single episode, unspecified; G47.30 Sleep apnea, unspecified; R06.83 Snoring; Z87.442 Personal history of urinary calculi; Z79.82 Long term (current) use of aspirin; Z79.899 Other long term (current) drug therapy; Z79.4 Long term (current) use of insulin
CPT/HCPCS: 43239

== ENCOUNTER → 2017-06-18 | Outpatient (CLI) | payer SELFPAY, OTHER | LOC: M SMT 09:44 | DX: N20.0 Calculus of kidney (principal) | CPT/HCPCS: 74018 ==

== ENCOUNTER → 2017-08-28 | Outpatient (REF) | payer OTHER ==
[2017-08-28 13:50] LABS: BASO % 0.6 % (0.0-1.0); EOS # 0.1 10^3/uL (0.0-0.50); EOS % 1.9 % (0.0-3.0); HEMATOCRIT 32.8 % (36.0-47.0); HEMOGLOBIN 10.6 g/dl (12.0-15.5); LYMPH # 2.3 10^3/uL (1.5-4.5); LYMPH % 31.9 % (24.0-44.0); MEAN CORPUSCULAR HEMOGLOBIN 27.1 pg (27.0-33.0); MEAN CORPUSCULAR HGB CONC 32.3 g/dl (32.0-36.5); MEAN CORPUSCULAR VOLUME 83.9 fl (80.0-96.0); MONO # 0.6 10^3/uL (0.0-0.8); MONO % 7.9 % (0.0-5.0); NEUTROPHILS # 4.1 10^3/uL (1.8-7.7); NEUTROPHILS % 56.7 % (36.0-66.0); PLATELET COUNT, AUTOMATED 285 10^3/uL (150-450); RED BLOOD COUNT 3.91 10^6/uL (4.00-5.40); RED CELL DISTRIBUTION WIDTH 14.5 % (11.5-14.5); WHITE BLOOD COUNT 7.2 10^3/uL (4.0-10.0)
[2017-08-28 14:07] LABS: TOTAL 25(OH) VITAMIN D 15.6 NG/ML (30.0-100.0)
[2017-08-28 15:34] LABS: ALBUMIN 3.4 GM/DL (3.2-5.2); ALBUMIN/GLOBULIN RATIO 0.92 (1.00-1.93); ALKALINE PHOSPHATASE 84 U/L (45-117); ALT/SGPT 20 U/L (12-78); ANION GAP 11 MEQ/L (8-16); AST/SGOT 10 U/L (7-37); BILIRUBIN,TOTAL 0.2 MG/DL (0.2-1.0); BLOOD UREA NITROGEN 15 MG/DL (7-18); CALCIUM LEVEL 8.6 MG/DL (8.5-10.1); CARBON DIOXIDE LEVEL 25 MEQ/L (21-32); CHLORIDE LEVEL 105 MEQ/L (98-107); CHOLESTEROL LEVEL 155 MG/DL (<200); CREATININE FOR GFR 0.91 MG/DL (0.55-1.30); FERRITIN 6 NG/ML (8-252); GLOMERULAR FILTRATION RATE > 60.0 (>58); GLUCOSE, FASTING 245 MG/DL (70-100); HDL CHOLESTEROL 42 MG/DL (>40); IRON (FE) 30 UG/DL (50-170); NON-HDL-C 113 MG/DL; PERCENT SATURATION 8.4 % (13.2-45.0); POTASSIUM SERUM 4.3 MEQ/L (3.5-5.1); SODIUM LEVEL 141 MEQ/L (136-145); TOTAL IRON BINDING CAPACITY 356 UG/DL (250-450); TOTAL PROTEIN 7.1 GM/DL (6.4-8.2); TRIGLYCERIDES LEVEL 160 MG/DL (<150)
[2017-08-28 18:53] LABS: ESTIMATED AVERAGE GLUCOSE 266 MG/DL (60-110); HEMOGLOBIN A1c 10.9 %
== END ==
LOC: M SFHCADAM 10:51
DX: E11.9 Type 2 diabetes mellitus without complications (principal); K21.9 Gastro-esophageal reflux disease without esophagitis; D64.9 Anemia, unspecified

== ENCOUNTER 2017-11-02 06:22 | Emergency (ER) | payer OTHER ==
[2017-11-02] MEDS: NS 1,000 ML IV (07:23)
[2017-11-02] MEDS: ONDANSETRON 4MG/2ML VIAL (J2405) IV (07:23)
[2017-11-02] MEDS: KETOROLAC 30 MG/ML VIAL (J1885) IV (07:24)
[2017-11-02 07:30] LABS: BASO % 0.4 % (0.0-1.0); EOS # 0.2 10^3/uL (0.0-0.50); EOS % 1.7 % (0.0-3.0); HEMATOCRIT 36.1 % (36.0-47.0); HEMOGLOBIN 11.8 g/dl (12.0-15.5); IMMATURE GRANULOCYTE % 0.4 % (0-3.0); LYMPH # 1.6 10^3/uL (1.5-4.5); LYMPH % 17.1 % (24.0-44.0); MEAN CORPUSCULAR HEMOGLOBIN 28.3 pg (27.0-33.0); MEAN CORPUSCULAR HGB CONC 32.7 g/dl (32.0-36.5); MEAN CORPUSCULAR VOLUME 86.6 fl (80.0-96.0); MONO # 0.5 10^3/uL (0.0-0.8); MONO % 5.7 % (0.0-5.0); NEUTROPHILS % 74.7 % (36.0-66.0); PLATELET COUNT, AUTOMATED 293 10^3/uL (150-450); RED BLOOD COUNT 4.17 10^6/uL (4.00-5.40); RED CELL DISTRIBUTION WIDTH 15.5 % (11.5-14.5); WHITE BLOOD COUNT 9.4 10^3/uL (4.0-10.0)
[2017-11-02 07:39] LABS: KETONE, URINE AUTO RFX NEGATIVE (NEGATIVE); LEUKOCYTE ESTERASE UR AUTO RFX NEGATIVE (NEGATIVE); MUCUS, URINE RFX SMALL (NEGATIVE); NITRITE, URINE AUTO RFX NEGATIVE (NEGATIVE); RBC, URINE AUTO RFX 114 /HPF (0-3); SPECIFIC GRAVITY UR AUTO RFX 1.009 (1.002-1.035); SQUAM EPITHELIAL CELL UR AURFX 1 /HPF (0-6); WBC, URINE AUTO RFX 2 /HPF (0-3)
[2017-11-02 07:48] LABS: CONTROL LINE HCG INT CTR LINE PRESENT; HCG, SERUM QUALITATIVE NEGATIVE (NEGATIVE)
[2017-11-02 07:55] LABS: ALBUMIN 3.4 GM/DL (3.2-5.2); ALBUMIN/GLOBULIN RATIO 0.76 (1.00-1.93); ALKALINE PHOSPHATASE 77 U/L (45-117); ALT/SGPT 22 U/L (12-78); ANION GAP 6 MEQ/L (8-16); AST/SGOT 16 U/L (7-37); BILIRUBIN,DIRECT < 0.1 MG/DL (0.0-0.2); BILIRUBIN,TOTAL 0.2 MG/DL (0.2-1.0); BLOOD UREA NITROGEN 16 MG/DL (7-18); CALCIUM LEVEL 9.2 MG/DL (8.5-10.1); CARBON DIOXIDE LEVEL 27 MEQ/L (21-32); CHLORIDE LEVEL 108 MEQ/L (98-107); CREATININE FOR GFR 0.85 MG/DL (0.55-1.30); GLOMERULAR FILTRATION RATE > 60.0 (>58); GLUCOSE, FASTING 157 MG/DL (70-100); LIPASE 133 U/L (73-393); POTASSIUM SERUM 4.2 MEQ/L (3.5-5.1); SODIUM LEVEL 141 MEQ/L (136-145); TOTAL PROTEIN 7.9 GM/DL (6.4-8.2)
== END 2017-11-02 10:30 | disposition home or self-care (01) ==
LOC: M ED 06:22
DX: N23 Unspecified renal colic (principal); N20.0 Calculus of kidney; I10 Essential (primary) hypertension; E11.9 Type 2 diabetes mellitus without complications; K21.9 Gastro-esophageal reflux disease without esophagitis; E78.5 Hyperlipidemia, unspecified
CPT/HCPCS: J2405

== ENCOUNTER 2017-12-20 07:43 | Day surgery (SDC) | payer OTHER ==
[~2017-12-20 07:43] MED LIST changes: -AMLO10TA2 PO; -ASPI81TA85 PO; -CLAR10CA3 PO; -GLYCOPYRROLATE INJ 0.2 MG/ML 2 ML VIAL As Ordered ONE; -HUMA100I3 SC; -KETO10TAB PO; +LIDOCAINE 2% INJ 100 MG/5 ML SDV (FOR ANES.) As Ordered; -LIDOCAINE 2% INJ 100 MG/5 ML SDV (FOR ANES.) As Ordered ONE; -LISI40TAB PO; -LISINOPRIL 40 MG TAB PO SCH; -MACR100C43 PO; -METF10004 PO; -METO1TAB32 PO; -MIDAZOLAM INJ 2 MG/2 ML VIAL (J2250) As Ordered ONE; -NEOSTIGMINE 1MG/ML 5 ML SYRINGE (J2710) As Ordered ONE; -NORCOTAB PO; +ONDANSETRON 4MG/2ML VIAL (J2405) As Ordered; -ONDANSETRON 4MG/2ML VIAL (J2405) As Ordered ONE; +PROPOFOL 200 MG/20 ML VIAL As Ordered; -PROPOFOL 200 MG/20 ML VIAL As Ordered ONE; -PROT20TA11 PO; -ROCURONIUM BROMIDE 50 MG/5 ML VIAL/SYRINGE As Ordered ONE; -SIMV40TA2 PO; -SIMVASTATIN 40 MG TAB PO SCH; -TOPR50TA PO; -TOUJ1.2I SC; -fentaNYL 100 MCG/2 ML INJECTION (J3010) As Ordered ONE
[2017-12-20] MEDS ORDERED: ceFAZolin 2 GM/D5W 50 ML IV BAG (J0690 PER 500MG) As Ordered (08:30)
[2017-12-20 08:51] LABS: CONTROL LINE UCG INT CTR LINE PRESENT; URINE PREG TEST NEGATIVE (NEGATIVE)
[2017-12-20 08:59] LABS: BEDSIDE GLUCOSE 135 MG/DL (70-105)
[2017-12-20] MEDS ORDERED: LR 1,000 ML IV ×2 (09:00→11:15)
[2017-12-20] MEDS ORDERED: fentaNYL 100 MCG/2 ML INJECTION (J3010) As Ordered (11:03)
[2017-12-20] MEDS ORDERED: KETAMINE HCL 200 MG/20 ML VIAL As Ordered (11:03)
[2017-12-20] MEDS ORDERED: MIDAZOLAM INJ 2 MG/2 ML VIAL (J2250) As Ordered (11:03)
[2017-12-20] MEDS ORDERED: PERCOCET 5MG/325MG TAB As Ordered (11:07)
[2017-12-20] MEDS: PERCOCET 5MG/325MG TAB PO ×2 (11:10→11:37)
[2017-12-20] MEDS: ONDANSETRON 4MG/2ML VIAL (J2405) IV (12:13)
[2017-12-20] MEDS ORDERED: METOCLOPRAMIDE INJ 10MG/2ML VIAL (J2765) As Ordered (12:24)
[2017-12-20] MEDS: METOCLOPRAMIDE INJ 10MG/2ML VIAL (J2765) IV (12:30)
== END 2017-12-20 14:00 | disposition home or self-care (01) ==
LOC: M SDC 07:43
DX: N20.0 Calculus of kidney (principal); E11.9 Type 2 diabetes mellitus without complications; I10 Essential (primary) hypertension; E78.5 Hyperlipidemia, unspecified; K21.9 Gastro-esophageal reflux disease without esophagitis; Z79.4 Long term (current) use of insulin; D64.9 Anemia, unspecified; F32.9 Major depressive disorder, single episode, unspecified; F41.9 Anxiety disorder, unspecified; Z79.82 Long term (current) use of aspirin; Z79.84 Long term (current) use of oral hypoglycemic drugs
CPT/HCPCS: 50590

== ENCOUNTER → 2018-01-10 | Outpatient (CLI) | payer OTHER | LOC: M SMT 08:17 | DX: Z87.442 Personal history of urinary calculi (principal) | CPT/HCPCS: 82360 ==

== ENCOUNTER 2018-05-09 09:49 | Day surgery (SDC) | payer OTHER ==
[~2018-05-09] VITALS: Ht 149.9 cm; Wt 102.1 kg
[~2018-05-09 09:49] MED LIST changes: +ACET1TAB55 PO; +AMLO10TA5 PO; +AMLO5TAB6 PO; +ASPI81TA85 PO; +CARV6.25 PO; +CLAR10CA3 PO; +DITR5TAB PO; +FERR325T3 PO; +HUMA100I3 SC; +IBUP-1022 PO; +INSULANT SC; +KETO10TAB PO; -LIDOCAINE 2% INJ 100 MG/5 ML SDV (FOR ANES.) As Ordered; +LIDOCAINE 2% INJ 100 MG/5 ML SDV (FOR ANES.) As Ordered ONE; +LISI40TA PO; +MACR100C43 PO; +METF10004 PO; +METO1TAB32 PO; +NORCOTAB PO; +NS 1,000 ML IV ONE; +ONDA4TAB5; +ONDA4TAB5 PO; -ONDANSETRON 4MG/2ML VIAL (J2405) As Ordered; +OXYC1TAB23 PO; +PANT40TA3; +PERC5TAB12 PO; -PROPOFOL 200 MG/20 ML VIAL As Ordered; +PROPOFOL 200 MG/20 ML VIAL As Ordered ONE; +PROT20TA11 PO; +SERT50TA PO; +SIMV40TA2 PO; +SUCR1TAB56; +TOPR50TA23 PO; +TOUJ1.2I SC; +ZOFR4TAB14 PO
[2018-05-09] MEDS ORDERED: fentaNYL 100 MCG/2 ML INJECTION (J3010) As Ordered ONE (11:03)
[2018-05-09] MEDS ORDERED: PROPOFOL 200 MG/20 ML VIAL As Ordered ONE (11:56)
[2018-05-09 12:30] VITALS: BP 138/85
--- NOTE | 2018-05-09 12:40 | ROOR ---
Patient Name: Radha Guy Procedure Date: 05/09/2018 11:30 AM Date of : 1975 Age: 42 Room: [facility] Gender: Female Note Status: Finalized Procedure: Upper GI endoscopy Indications: Epigastric abdominal pain, Abdominal pain in the left upper quadrant Providers: Diego Woodward MD Referring MD: ISAAC Jaquez Requesting Provider: Medicines: Monitored Anesthesia Care Complications: No immediate complications. Procedure: Pre-Anesthesia Assessment: - Prior to the procedure, a History and Physical was performed, and patient medications and allergies were reviewed. The patient is competent. The risks and benefits of the procedure and the sedation options and risks were discussed with the patient. All questions were answered and informed consent was obtained. Patient identification and proposed procedure were verified by the physician, the nurse and the anesthesiologist in the procedure room. Mental Status Examination: alert and oriented. Airway Examination: normal oropharyngeal airway and neck mobility. Respiratory Examination: clear to auscultation. CV Examination: normal. Prophylactic Antibiotics: The patient does not require prophylactic antibiotics. Prior Anticoagulants: The patient has taken no previous anticoagulant or antiplatelet agents. ASA Grade Assessment: III - A patient with severe systemic disease. After reviewing the risks and benefits, the patient was deemed in satisfactory condition to undergo the procedure. The anesthesia plan was to use monitored anesthesia care (MAC). Immediately prior to administration of medications, the patient was re-assessed for adequacy to receive sedatives. The heart rate, respiratory rate, oxygen saturations, blood pressure, adequacy of pulmonary ventilation, and response to care were monitored throughout the procedure. The physical status of the patient was re-assessed after the procedure. The Endoscope was introduced through the mouth, and advanced to the second part of duodenum. The upper GI endoscopy was accomplished without difficulty. The patient tolerated the procedure well. Findings: The Z-line was regular and was found 38 cm from the incisors. Diffuse mild inflammation characterized by erythema and granularity was found in the gastric body and in the gastric antrum. Biopsies were taken with a cold forceps for Helicobacter pylori testing. Verification of patient identification for the specimen was done by the physician and nurse using the patient's name, date and medical record number. Estimated blood loss was minimal. The duodenal bulb and second portion of the duodenum were normal. Biopsies for histology were taken with a cold forceps for evaluation of celiac disease. There is no endoscopic evidence of esophagitis or hiatal hernia in the lower third of the esophagus. The ZARAGOZA capsule with delivery system was introduced through the mouth and advanced into the esophagus, such that the ZARAGOZA pH capsule was positioned 32 cm from the incisors, which was 6 cm proximal to the GE junction. Suction was applied to the well of the ZARAGOZA pH capsule to suck in the adjacent mucosa of the esophagus using the external vacuum pump set at a minimum vacuum pressure of 550 mmHg for 30 seconds. The ZARAGOZA pH capsule was then deployed by depressing the plunger on top of the handle to advance the locking pin into the mucosa, thereby attaching the capsule to the esophagus. The plunger was then rotated a quarter turn clockwise to release the capsule from the delivery system. The delivery system was then withdrawn. Endoscopy was utilized for probe placement and diagnostic evaluation. The scope was reinserted to evaluate placement of the ZARAGOZA capsule. Visualization showed the ZARAGOZA capsule to be in an appropriate position. Impression: - Z-line regular, 38 cm from the incisors. - Gastritis. Biopsied. - Normal duodenal bulb and second portion of the duodenum. Biopsied. - The ZARAGOZA pH capsule was positioned 32 cm from the incisors, which was 6 cm proximal to the GE junction. Recommendation: - Patient has a contact number available for emergencies. The signs and symptoms of potential delayed complications were discussed with the patient. Return to normal activities tomorrow. Written discharge instructions were provided to the patient. - Resume previous diet. - Continue present medications. - Await pathology results. - Based on the biopsy results you will receive a phone call from GI clinic in 2-3 weeks to review the pathology results AND/OR your results will be faxed to your Primary care physician. - Return to primary care physician. Diego Woodward MD Diego Woodward MD 05/09/2018 12:39:36 PM This report has been signed electronically. Number of Addenda: 0 Note Initiated On: 05/09/2018 11:30 AM Estimated Blood Loss: Estimated blood loss was minimal.
--- NOTE | 2018-05-09 12:51 | ROOR ---
Patient Name: Radha Guy Procedure Date: 05/09/2018 11:31 AM Date of : 1975 Age: 42 Room: [facility] Gender: Female Note Status: Finalized Procedure: Colonoscopy Indications: Iron deficiency anemia Providers: Diego Woodward MD Referring MD: ISAAC Jaquez Requesting Provider: Medicines: Monitored Anesthesia Care Complications: No immediate complications. Procedure: Pre-Anesthesia Assessment: - Prior to the procedure, a History and Physical was performed, and patient medications and allergies were reviewed. The patient is competent. The risks and benefits of the procedure and the sedation options and risks were discussed with the patient. All questions were answered and informed consent was obtained. Patient identification and proposed procedure were verified by the physician, the nurse and the anesthesiologist in the procedure room. Mental Status Examination: alert and oriented. Airway Examination: normal oropharyngeal airway and neck mobility. Respiratory Examination: clear to auscultation. CV Examination: normal. Prophylactic Antibiotics: The patient does not require prophylactic antibiotics. Prior Anticoagulants: The patient has taken no previous anticoagulant or antiplatelet agents. ASA Grade Assessment: III - A patient with severe systemic disease. After reviewing the risks and benefits, the patient was deemed in satisfactory condition to undergo the procedure. The anesthesia plan was to use monitored anesthesia care (MAC). Immediately prior to administration of medications, the patient was re-assessed for adequacy to receive sedatives. The heart rate, respiratory rate, oxygen saturations, blood pressure, adequacy of pulmonary ventilation, and response to care were monitored throughout the procedure. The physical status of the patient was re-assessed after the procedure. The Colonoscope was introduced through the anus and advanced to the terminal ileum, with identification of the appendiceal orifice and IC valve. The colonoscopy was performed without difficulty. The patient tolerated the procedure well. The quality of the bowel preparation was good. The terminal ileum, ileocecal valve, appendiceal orifice, and rectum were photographed. Scope insertion time was 3 minutes. Scope withdrawal time was 9 minutes. The total duration of the procedure was 11 minutes. Findings: The perianal and digital rectal examinations were normal. The terminal ileum appeared normal. Two sessile polyps were found in the transverse colon. The polyps were 6 to 8 mm in size. These polyps were removed with a cold snare. Resection and retrieval were complete. Verification of patient identification for the specimen was done by the physician and nurse using the patient's name, date and medical record number. Estimated blood loss was minimal. Non-bleeding external and internal hemorrhoids were found during retroflexion. The hemorrhoids were medium-sized. Impression: - The examined portion of the ileum was normal. - Two 6 to 8 mm polyps in the transverse colon, removed with a cold snare. Resected and retrieved. - Non-bleeding external and internal hemorrhoids. Recommendation: - Patient has a contact number available for emergencies. The signs and symptoms of potential delayed complications were discussed with the patient. Return to normal activities tomorrow. Written discharge instructions were provided to the patient. - High fiber diet. - Continue present medications. - Preparation H ointment: Apply externally daily for 7 days. - Await pathology results. - Repeat colonoscopy in 5-10 years for surveillance based on pathology results. - Based on the biopsy results you will receive a phone call from GI clinic in 2-3 weeks to review the pathology results AND/OR your results will be faxed to your Primary care physician. - Return to primary care physician. Diego Woodward MD Diego Woodward MD 05/09/2018 12:51:35 PM This report has been signed electronically. Number of Addenda: 0 Note Initiated On: 05/09/2018 11:31 AM Estimated Blood Loss: Estimated blood loss was minimal.
== END 2018-05-09 12:53 | disposition home or self-care (01) ==
LOC: M OPP 09:49
PROVIDERS: ATTEND Internal Medicine Gastroenterology
DX: D50.9 Iron deficiency anemia, unspecified (principal); D12.3 Benign neoplasm of transverse colon; K64.8 Other hemorrhoids; R10.12 Left upper quadrant pain; K29.70 Gastritis, unspecified, without bleeding; K21.9 Gastro-esophageal reflux disease without esophagitis; Z79.4 Long term (current) use of insulin; Z79.82 Long term (current) use of aspirin; Z79.899 Other long term (current) drug therapy
CPT/HCPCS: 43239; 45385; 88305; 91035; J3010

== ENCOUNTER → 2018-06-28 | Outpatient (REF) | payer OTHER ==
[~2018-06-28] MED LIST changes: +HYDR-3715 PO; -LIDOCAINE 2% INJ 100 MG/5 ML SDV (FOR ANES.) As Ordered ONE; -NORCOTAB PO; -NS 1,000 ML IV ONE; -PROPOFOL 200 MG/20 ML VIAL As Ordered ONE; +SERT-141 PO; -SERT50TA PO; +TOPR50TA PO; -TOPR50TA23 PO
[2018-06-28 13:37] LABS: INFLUENZA A AMPLIFICATION NEGATIVE (NEGATIVE); INFLUENZA B AMPLIFICATION NEGATIVE (NEGATIVE)
== END ==
LOC: M LAB REF 12:20
PROVIDERS: ATTEND Physician Assistant
DX: J11.1 Influenza due to unidentified influenza virus with other respiratory manifestations (principal)

== ENCOUNTER → 2019-02-21 | Outpatient (REF) | payer OTHER ==
[~2019-02-21] MED LIST changes: -SIMV40TA2 PO; +SIMV40TA20 PO
[2019-02-21 13:49] LABS: APPEARANCE, URINE HAZY (CLEAR); BACTERIA, URINE AUTO NEGATIVE (NEGATIVE); BILIRUBIN, URINE AUTO NEGATIVE (NEGATIVE); BLOOD, URINE BLOOD 1+ (NEGATIVE); COLOR, URINE YELLOW (YELLOW); GLUCOSE, URINE (UA) AUTO 3+ mg/dL (NEGATIVE); KETONE, URINE AUTO NEGATIVE (NEGATIVE); LEUKOCYTE ESTERASE, URINE AUTO 3+ (NEGATIVE); MUCUS, URINE SMALL (NEGATIVE); NITRITE, URINE AUTO NEGATIVE (NEGATIVE); PROTEIN, URINE AUTO 1+ mg/dL (NEGATIVE); RBC, URINE AUTO 6 /HPF (0-3); SPECIFIC GRAVITY URINE AUTO 1.025 (1.002-1.035); SQUAMOUS EPITHELIAL CELL UR AU 2 /HPF (0-6); UROBILINOGEN, URINE AUTO 0.2 mg/dL (0.0-2.0); WBC, URINE AUTO 12 /HPF (0-3)
== END ==
LOC: M SMT 13:15
PROVIDERS: ATTEND Nurse Practitioner Family
DX: R10.9 Unspecified abdominal pain (principal)

== ENCOUNTER → 2019-02-27 | Outpatient (CLI) | payer OTHER ==
--- NOTE | 2019-02-27 08:56 | REP ---
CT abdomen and pelvis without IV or oral contrast: History: Left flank pain. Comparison CT study November 02, 2017. CT findings: Preliminary digital professional sports scout radiograph is unremarkable. Normal bowel gas pattern. The lung bases are clear on axial CT images except for a granulomatous calcification in the left lower lobe which is unchanged. The spleen is normal in size, homogeneous in texture. There is a tiny accessory splenule. The liver is near the upper range of normal in size. Minimal fatty infiltration is seen with areas of fat sparing near the gallbladder. No abnormality is noted in the gallbladder. No focal liver lesion is seen. No adrenal lesion is seen on either side. No abnormality is visible in the pancreas. There are bilateral intrarenal calculi with a tiny punctate calculus in the lower pole collecting system on the right and a 1.1 cm calculus in the lower pole collecting system calyx on the left. There is no evidence of hydronephrosis on either side. No ureteral calculus is seen. No bladder calculus is noted. Normal appendix is seen. Small and large bowel loops are unremarkable. No abdominal wall defect is seen. No uterine or ovarian abnormality is observed. Bone window settings show no bony destructive lesion. Impression: Bilateral intrarenal nephrolithiasis. There is an 11 mm calculus in the lower pole collecting system of the left kidney. Otherwise no acute abnormality. Electronically Signed by Bola Vang MD 02/27/2019 09:09 A
== END ==
LOC: M RAD 07:37
PROVIDERS: ATTEND Nurse Practitioner Family
DX: N20.0 Calculus of kidney (principal)

== ENCOUNTER → 2019-03-06 | Outpatient (CLI) | payer OTHER ==
--- NOTE | 2019-03-06 11:00 | REP ---
Clinical: Kidney stone. Technique: Two supine views of the abdomen and pelvis. Findings: No obvious urinary tract calcifications are appreciated. Bowel gas pattern is nonspecific. No organomegaly. No abnormal calcifications. Skeletal structures are intact. Impression: Nonspecific examination. No obvious urinary tract calcifications. Electronically Signed by Tom Lopez MD 03/06/2019 10:52 A
== END ==
LOC: M RAD 10:25
PROVIDERS: ATTEND Nurse Practitioner Family
DX: N20.0 Calculus of kidney (principal)

== ENCOUNTER → 2019-03-06 | Outpatient (REF) | payer OTHER ==
[2019-03-06 19:17] LABS: BASO % 0.4 % (0.0-1.0); EOS # 0.2 10^3/uL (0.0-0.5); EOS % 1.8 % (0.0-3.0); HEMATOCRIT 40.3 % (36.0-47.0); HEMOGLOBIN 12.8 g/dl (12.0-15.5); LYMPH # 2.5 10^3/uL (1.5-5.0); LYMPH % 23.9 % (24.0-44.0); MEAN CORPUSCULAR HEMOGLOBIN 30.8 pg (27.0-33.0); MEAN CORPUSCULAR HGB CONC 31.8 g/dl (32.0-36.5); MEAN CORPUSCULAR VOLUME 96.9 fl (80.0-96.0); MONO # 0.6 10^3/uL (0.0-0.8); MONO % 6.2 % (0.0-5.0); NEUTROPHILS # 6.9 10^3/uL (1.5-8.5); NEUTROPHILS % 67.1 % (36.0-66.0); PLATELET COUNT, AUTOMATED 327 10^3/uL (150-450); RED BLOOD COUNT 4.16 10^6/uL (4.00-5.40); WHITE BLOOD COUNT 10.3 10^3/uL (4.0-10.0)
[2019-03-06 19:44] LABS: HEMOGLOBIN A1c 9.5 %
[2019-03-06 19:47] LABS: ALBUMIN 3.6 GM/DL (3.2-5.2); ALT/SGPT 22 U/L (12-78); BILIRUBIN,TOTAL 0.2 MG/DL (0.2-1.0); BLOOD UREA NITROGEN 15 MG/DL (7-18); CALCIUM LEVEL 8.7 MG/DL (8.5-10.1); CARBON DIOXIDE LEVEL 25 MEQ/L (21-32); CHLORIDE LEVEL 104 MEQ/L (98-107); CHOLESTEROL LEVEL 233 MG/DL (<200); CREATININE FOR GFR 1.11 MG/DL (0.55-1.30); GLOMERULAR FILTRATION RATE 56.8 (>58); GLUCOSE, FASTING 364 MG/DL (70-100); HDL CHOLESTEROL 33 MG/DL (>40); NON-HDL-C 200 MG/DL; POTASSIUM SERUM 4.3 MEQ/L (3.5-5.1); SODIUM LEVEL 137 MEQ/L (136-145); TOTAL PROTEIN 7.3 GM/DL (6.4-8.2); TRIGLYCERIDES LEVEL 628 MG/DL (<150)
[2019-03-06 19:50] LABS: VITAMIN B12 LEVEL 216 PG/ML (247-911)
[2019-03-06 20:25] LABS: MAU/CREAT RATIO 426.4 MCG/MG (0.0-30.0)
== END ==
LOC: M SFHCADAM 15:38
PROVIDERS: ATTEND Physician Assistant Medical
DX: E11.65 Type 2 diabetes mellitus with hyperglycemia (principal); E66.01 Morbid (severe) obesity due to excess calories; Z79.4 Long term (current) use of insulin

== ENCOUNTER → 2019-03-06 | Outpatient (REF) | payer OTHER ==
[2019-03-06 14:40] LABS: AMORPHOUS SEDIMENT SMALL (NEGATIVE); APPEARANCE, URINE CLEAR (CLEAR); BACTERIA, URINE AUTO NEGATIVE (NEGATIVE); BILIRUBIN, URINE AUTO NEGATIVE (NEGATIVE); BLOOD, URINE BLOOD NEGATIVE (NEGATIVE); COLOR, URINE YELLOW (YELLOW); GLUCOSE, URINE (UA) AUTO NEGATIVE (NEGATIVE); KETONE, URINE AUTO NEGATIVE (NEGATIVE); LEUKOCYTE ESTERASE, URINE AUTO TRACE (NEGATIVE); NITRITE, URINE AUTO NEGATIVE (NEGATIVE); PROTEIN, URINE AUTO 2+ mg/dL (NEGATIVE); RBC, URINE AUTO 1 /HPF (0-3); SPECIFIC GRAVITY URINE AUTO 1.018 (1.002-1.035); SQUAMOUS EPITHELIAL CELL UR AU 2 /HPF (0-6); UROBILINOGEN, URINE AUTO 0.2 mg/dL (0.0-2.0); WBC, URINE AUTO 2 /HPF (0-3)
[2019-03-07 16:06] LABS: APPEARANCE, URINE HAZY (CLEAR); BACTERIA, URINE AUTO NEGATIVE (NEGATIVE); BILIRUBIN, URINE AUTO NEGATIVE (NEGATIVE); BLOOD, URINE BLOOD 1+ (NEGATIVE); COLOR, URINE STRAW (YELLOW); GLUCOSE, URINE (UA) AUTO 3+ mg/dL (NEGATIVE); KETONE, URINE AUTO NEGATIVE (NEGATIVE); LEUKOCYTE ESTERASE, URINE AUTO 2+ (NEGATIVE); MUCUS, URINE SMALL (NEGATIVE); NITRITE, URINE AUTO NEGATIVE (NEGATIVE); PROTEIN, URINE AUTO NEGATIVE (NEGATIVE); RBC, URINE AUTO 3 /HPF (0-3); SQUAMOUS EPITHELIAL CELL UR AU 4 /HPF (0-6); UROBILINOGEN, URINE AUTO 0.2 mg/dL (0.0-2.0); WBC, URINE AUTO 49 /HPF (0-3)
== END ==
LOC: M SMT 13:51
PROVIDERS: ATTEND Nurse Practitioner Family
DX: Z01.818 Encounter for other preprocedural examination (principal); N20.0 Calculus of kidney; R10.9 Unspecified abdominal pain

== ENCOUNTER → 2019-03-14 | Outpatient (REF) | payer OTHER | LOC: M SFHCLERA 18:55 | PROVIDERS: ATTEND Nurse Practitioner Family | DX: R50.9 Fever, unspecified (principal); R07.0 Pain in throat; R05 Cough ==

== ENCOUNTER → 2019-04-12 | Outpatient (REF) | payer OTHER ==
[~2019-04-12] MED LIST changes: +ADME100I SQ; +BASA100I SQ; +FISH1000 PO; +ONDA-83; +ONDA-83 PO; -ONDA4TAB5; -ONDA4TAB5 PO; -PANT40TA3; +PANT40TA3 PO; +VITA100018 PO
[2019-04-12 13:28] LABS: APPEARANCE, URINE CLEAR (CLEAR); BACTERIA, URINE AUTO NEGATIVE (NEGATIVE); BILIRUBIN, URINE AUTO NEGATIVE (NEGATIVE); BLOOD, URINE BLOOD NEGATIVE (NEGATIVE); COLOR, URINE YELLOW (YELLOW); GLUCOSE, URINE (UA) AUTO NEGATIVE (NEGATIVE); KETONE, URINE AUTO NEGATIVE (NEGATIVE); LEUKOCYTE ESTERASE, URINE AUTO 1+ (NEGATIVE); MUCUS, URINE SMALL (NEGATIVE); NITRITE, URINE AUTO NEGATIVE (NEGATIVE); PROTEIN, URINE AUTO 2+ mg/dL (NEGATIVE); RBC, URINE AUTO 2 /HPF (0-3); SPECIFIC GRAVITY URINE AUTO 1.018 (1.002-1.035); SQUAMOUS EPITHELIAL CELL UR AU 0 /HPF (0-6); UROBILINOGEN, URINE AUTO 0.2 mg/dL (0.0-2.0); WBC, URINE AUTO 5 /HPF (0-3)
[2019-04-12 13:30] LABS: HEMATOCRIT 39.9 % (36.0-47.0); MEAN CORPUSCULAR HEMOGLOBIN 30.6 pg (27.0-33.0); MEAN CORPUSCULAR HGB CONC 32.6 g/dl (32.0-36.5); MEAN CORPUSCULAR VOLUME 93.9 fl (80.0-96.0); PLATELET COUNT, AUTOMATED 257 10^3/uL (150-450); RED BLOOD COUNT 4.25 10^6/uL (4.00-5.40); WHITE BLOOD COUNT 8.6 10^3/uL (4.0-10.0)
[2019-04-12 13:33] LABS: BLOOD UREA NITROGEN 11 MG/DL (7-18); CALCIUM LEVEL 9.3 MG/DL (8.5-10.1); CARBON DIOXIDE LEVEL 29 MEQ/L (21-32); CHLORIDE LEVEL 109 MEQ/L (98-107); CREATININE FOR GFR 0.78 MG/DL (0.55-1.30); GLOMERULAR FILTRATION RATE > 60.0 (>58); GLUCOSE, FASTING 104 MG/DL (70-100); POTASSIUM SERUM 4.3 MEQ/L (3.5-5.1); SODIUM LEVEL 143 MEQ/L (136-145)
[2019-04-12 13:40] LABS: INR 1.02; PROTHROMBIN TIME 13.1 SECONDS (11.8-14.0)
[2019-04-12 13:41] LABS: PARTIAL THROMBOPLASTIN TIME 25.1 SECONDS (25.0-38.4)
== END ==
LOC: M LABSMT 10:19
PROVIDERS: ATTEND Nurse Practitioner Family
DX: Z01.818 Encounter for other preprocedural examination (principal); N20.0 Calculus of kidney

== ENCOUNTER → 2019-04-12 | Outpatient (CLI) | payer OTHER ==
--- NOTE | 2019-04-12 11:17 | REP ---
PA and lateral chest: Comparison is 11/02/2016. The lung galeas are clear. The cardiac size is normal. The mark, mediastinum, and skeletal structures are unremarkable. Impression: Negative PA and lateral chest. There is no interval change. Electronically Signed by Lee Khan MD 04/12/2019 11:08 A
== END ==
LOC: M LRY 10:20
PROVIDERS: ATTEND Nurse Practitioner Family
DX: N20.0 Calculus of kidney (principal); Z01.818 Encounter for other preprocedural examination

== ENCOUNTER → 2019-04-15 | Outpatient (REF) | payer OTHER ==
[2019-04-15 16:47] LABS: APPEARANCE, URINE TURBID (CLEAR); BACTERIA, URINE AUTO 1+ (NEGATIVE); BILIRUBIN, URINE AUTO NEGATIVE (NEGATIVE); BLOOD, URINE BLOOD NEGATIVE (NEGATIVE); COLOR, URINE AMBER (YELLOW); GLUCOSE, URINE (UA) AUTO 3+ mg/dL (NEGATIVE); KETONE, URINE AUTO NEGATIVE (NEGATIVE); LEUKOCYTE ESTERASE, URINE AUTO 3+ (NEGATIVE); MUCUS, URINE SMALL (NEGATIVE); NITRITE, URINE AUTO NEGATIVE (NEGATIVE); PROTEIN, URINE AUTO 2+ mg/dL (NEGATIVE); RBC, URINE AUTO 16 /HPF (0-3); SPECIFIC GRAVITY URINE AUTO 1.022 (1.002-1.035); SQUAMOUS EPITHELIAL CELL UR AU 4 /HPF (0-6); UROBILINOGEN, URINE AUTO 0.2 mg/dL (0.0-2.0); WBC, URINE AUTO 64 /HPF (0-3)
== END ==
LOC: M LABSMT 10:14
PROVIDERS: ATTEND Nurse Practitioner Family
DX: Z01.818 Encounter for other preprocedural examination (principal); N20.0 Calculus of kidney

== ENCOUNTER → 2019-04-17 | Outpatient (REF) | payer OTHER ==
[2019-04-17 14:18] LABS: APPEARANCE, URINE HAZY (CLEAR); BACTERIA, URINE AUTO NEGATIVE (NEGATIVE); BILIRUBIN, URINE AUTO NEGATIVE (NEGATIVE); BLOOD, URINE BLOOD 2+ (NEGATIVE); COLOR, URINE YELLOW (YELLOW); GLUCOSE, URINE (UA) AUTO NEGATIVE (NEGATIVE); KETONE, URINE AUTO NEGATIVE (NEGATIVE); LEUKOCYTE ESTERASE, URINE AUTO NEGATIVE (NEGATIVE); MUCUS, URINE SMALL (NEGATIVE); NITRITE, URINE AUTO NEGATIVE (NEGATIVE); PROTEIN, URINE AUTO 2+ mg/dL (NEGATIVE); RBC, URINE AUTO 16 /HPF (0-3); SPECIFIC GRAVITY URINE AUTO 1.019 (1.002-1.035); SQUAMOUS EPITHELIAL CELL UR AU 1 /HPF (0-6); UROBILINOGEN, URINE AUTO 0.2 mg/dL (0.0-2.0); WBC, URINE AUTO 2 /HPF (0-3)
== END ==
LOC: M SMT 12:57
PROVIDERS: ATTEND Nurse Practitioner Family
DX: Z01.818 Encounter for other preprocedural examination (principal); N20.0 Calculus of kidney

== ENCOUNTER 2019-04-23 05:44 | Day surgery (SDC) | payer OTHER ==
[~2019-04-23] VITALS: Ht 152.4 cm; Wt 101.6 kg
[2019-04-23] MEDS ORDERED: ceFAZolin SOD 2 GM in IV 1 EA IV ONE (06:00)
[2019-04-23] MEDS ORDERED: LR 1,000 ML IV ONE (06:00)
[2019-04-23] MEDS ORDERED: CONRAY-60 60% 50ML VIAL (Q9961) As Ordered ONE (07:18)
[2019-04-23] MEDS ORDERED: fentaNYL 100 MCG/2 ML INJECTION (J3010) As Ordered ONE ×2 (07:19→08:11)
[2019-04-23] MEDS ORDERED: ONDANSETRON 4MG/2ML VIAL (J2405) As Ordered ONE ×2 (07:19→09:03)
[2019-04-23] MEDS ORDERED: propofoL 200 MG/20 ML VIAL As Ordered ONE (07:19)
[2019-04-23] MEDS ORDERED: LIDOCAINE 2% INJ 100 MG/5 ML SDV (FOR ANES.) As Ordered ONE (07:19)
[2019-04-23] MEDS ORDERED: dexameTHASONE 4 MG/ML 1ML VIAL (J1100) As Ordered ONE (07:19)
[2019-04-23] MEDS ORDERED: MIDAZOLAM INJ 2 MG/2 ML VIAL (J2250) As Ordered ONE (07:19)
[2019-04-23] MEDS ORDERED: ACETAMINOPHEN 1000MG 100ML IV BTL (OFIRMEV) (J0131 PER 10MG) As Ordered ONE (07:19)
[2019-04-23] MEDS ORDERED: PHENYLephrine HCL 500 MCG/5 ML (100MCG/ML) SYRINGE (J2370) As Ordered ONE (08:16)
[2019-04-23] MEDS ORDERED: hydrALAZINE INJ 20 MG/ML VIAL As Ordered ONE (09:15)
[2019-04-23] MEDS ORDERED: PERCOCET 5MG/325MG TAB PO PRN (09:15)
[2019-04-23] MEDS ORDERED: ONDANSETRON 4MG/2ML VIAL (J2405) IV PRN (09:15)
[2019-04-23] MEDS ORDERED: LR 1,000 ML IV SCH (09:15)
--- NOTE | 2019-04-23 09:15 | REP ---
Retrograde pyelogram: Two views. History: Kidney stone. Comparison CT study is from February 27, 2019. 7 seconds of fluoroscopy time is reported. Findings: A sequence of two last image hold fluoroscopically obtained spot radiographs of the left side of the abdomen document left ureteral cannulation and contrast injection. Electronically Signed by Bola Vang MD 04/23/2019 09:07 A
[2019-04-23] MEDS: hydrALAZINE INJ 20 MG/ML VIAL IV PRN ×4 (09:16→09:41)
[2019-04-23] MEDS: fentaNYL 100 MCG/2 ML INJECTION (J3010) IV PRN ×4 (09:16→09:41)
[2019-04-23] MEDS: PERCOCET 5MG/325MG TAB PO PRN ×2 (09:29→10:32)
[2019-04-23] MEDS ORDERED: KETOROLAC 30 MG/ML VIAL (J1885) As Ordered ONE (09:37)
[2019-04-23] MEDS ORDERED: KETOROLAC 30 MG/ML VIAL (J1885) IV ONE (09:45)
[2019-04-23 11:20] VITALS: BP 179/94
--- NOTE | 2019-04-24 08:08 | RO ---
DATE OF PROCEDURE: 04/23/2019 PREPROCEDURE DIAGNOSIS: Left kidney stones. POSTPROCEDURE DIAGNOSIS: Left kidney stones. PROCEDURE: Cystoscopy, left ureteroscopy with laser lithotripsy and basket extraction of stones, left retrograde pyelogram with intraoperative interpretation of images. SURGEON: Dr. Finn Miller COLLECTION SYSTEMS FOREMAN: None. ANESTHESIA: General. OPERATIVE INDICATIONS: This is a 43-year-old female who was found to have two non-obstructing lower pole left kidney stones measuring up to around 8-9 mm in size. She was brought to the operating room today for treatment. DESCRIPTION OF PROCEDURE: The patient was brought to the operating room and general anesthesia was induced. Prophylactic antibiotics were infused. She was placed in the dorsal lithotomy position and prepped and draped in the usual sterile fashion. A rigid cystoscope was inserted into the urethral meatus and advanced into the bladder. A guidewire was then advanced up the left collecting system. A ureteral access sheath was advanced up the left collecting system. I went up the access sheath with the flexible ureteroscope and within the lower pole the two kidney stones were seen. Both of these kidney stones were repositioned into the upper pole calyx to make it easier to fragment them. At this point, a 200 micron laser fiber was utilized to fragment the stones into smaller pieces. All of the fragments were then removed using a basket. Once done, the only stones remaining were very tiny stone fragments that the patient should be able to easily pass. At this point, a retrograde pyelogram was performed and notable for moderate left hydronephrosis with no extravasation. I then withdrew the ureteroscope along with access sheath and no additional large stones were seen within the ureter. Of note, the patient prefers not to have a ureteral stent placed after the procedure. I thought that this was safe to do. I then removed the wire. The left ureteral orifice effluxed urine without difficulty. The bladder was then emptied of all fluids and this marked the conclusion of the procedure. The patient was taken out of the dorsal lithotomy position, awakened from anesthesia and transported to the recovery room in stable condition. Estimated blood loss: 5 mL. Complications: None. Specimen: Kidney stone fragments. Plan: I will have the patient followup in the clinic in approximately 1 month for a postoperative visit.
== END 2019-04-23 11:27 | disposition home or self-care (01) ==
LOC: M SDC 05:44
PROVIDERS: ATTEND Urology
DX: N20.0 Calculus of kidney (principal); E11.9 Type 2 diabetes mellitus without complications; I10 Essential (primary) hypertension; Z79.4 Long term (current) use of insulin; E78.5 Hyperlipidemia, unspecified; K21.9 Gastro-esophageal reflux disease without esophagitis; F41.9 Anxiety disorder, unspecified; F32.9 Major depressive disorder, single episode, unspecified; Z79.899 Other long term (current) drug therapy
CPT/HCPCS: 52356; 74420; 81025; 82365; 88300; C1769; C1894; J0131; J0690; J1100; J1885; J2250; J2370; J2405; J3010; Q9961

== ENCOUNTER → 2019-04-28 | Outpatient (REF) | payer OTHER ==
[2019-04-28 14:18] LABS: APPEARANCE, URINE CLOUDY (CLEAR); BACTERIA, URINE AUTO 1+ (NEGATIVE); BILIRUBIN, URINE AUTO NEGATIVE (NEGATIVE); BLOOD, URINE BLOOD 3+ (NEGATIVE); COLOR, URINE YELLOW (YELLOW); GLUCOSE, URINE (UA) AUTO 1+ mg/dL (NEGATIVE); KETONE, URINE AUTO NEGATIVE (NEGATIVE); LEUKOCYTE ESTERASE, URINE AUTO NEGATIVE (NEGATIVE); MUCUS, URINE SMALL (NEGATIVE); NITRITE, URINE AUTO NEGATIVE (NEGATIVE); PROTEIN, URINE AUTO 2+ mg/dL (NEGATIVE); RBC, URINE AUTO TNTC /HPF (0-3); SPECIFIC GRAVITY URINE AUTO 1.014 (1.002-1.035); SQUAMOUS EPITHELIAL CELL UR AU 1 /HPF (0-6); UROBILINOGEN, URINE AUTO 0.2 mg/dL (0.0-2.0); WBC, URINE AUTO 29 /HPF (0-3)
== END ==
LOC: M SMT 13:10
PROVIDERS: ATTEND Nurse Practitioner Family
DX: R31.9 Hematuria, unspecified (principal)

== ENCOUNTER → 2019-08-29 | Outpatient (REF) | payer OTHER ==
[2019-08-29 16:59] LABS: BASO % 0.3 % (0.0-1.0); EOS # 0.2 10^3/uL (0.0-0.5); EOS % 2.3 % (0.0-3.0); HEMATOCRIT 37.8 % (36.0-47.0); HEMOGLOBIN 12.3 g/dl (12.0-15.5); LYMPH # 2.5 10^3/uL (1.5-5.0); LYMPH % 24.9 % (24.0-44.0); MEAN CORPUSCULAR HEMOGLOBIN 30.6 pg (27.0-33.0); MEAN CORPUSCULAR HGB CONC 32.5 g/dl (32.0-36.5); MONO # 0.7 10^3/uL (0.0-0.8); NEUTROPHILS # 6.4 10^3/uL (1.5-8.5); PLATELET COUNT, AUTOMATED 296 10^3/uL (150-450); RED BLOOD COUNT 4.02 10^6/uL (4.00-5.40); WHITE BLOOD COUNT 9.9 10^3/uL (4.0-10.0)
[2019-08-29 17:40] LABS: ALBUMIN 3.6 GM/DL (3.2-5.2); ALT/SGPT 20 U/L (12-78); BILIRUBIN,TOTAL 0.2 MG/DL (0.2-1.0); BLOOD UREA NITROGEN 18 MG/DL (7-18); CALCIUM LEVEL 9.5 MG/DL (8.5-10.1); CARBON DIOXIDE LEVEL 22 MEQ/L (21-32); CHLORIDE LEVEL 110 MEQ/L (98-107); CHOLESTEROL LEVEL 163 MG/DL (<200); CHOLESTEROL RISK RATIO 4.405 (<5); CREATININE FOR GFR 0.96 MG/DL (0.55-1.30); GLOMERULAR FILTRATION RATE > 60.0 (>58); GLUCOSE, FASTING 150 MG/DL (70-100); HDL CHOLESTEROL 37 MG/DL (>40); LDL CHOLESTEROL 80 MG/DL (<100); NON-HDL-C 126 MG/DL; SODIUM LEVEL 140 MEQ/L (136-145); TOTAL PROTEIN 7.5 GM/DL (6.4-8.2); TRIGLYCERIDES LEVEL 230 MG/DL (<150)
[2019-08-29 18:10] LABS: MAU/CREAT RATIO 394.2 MCG/MG (0.0-30.0)
[2019-08-29 19:01] LABS: HEMOGLOBIN A1c 10.2 %
== END ==
LOC: M SFHCADAM 13:26
PROVIDERS: ATTEND Physician Assistant Medical
DX: E78.2 Mixed hyperlipidemia (principal); K21.9 Gastro-esophageal reflux disease without esophagitis; E11.65 Type 2 diabetes mellitus with hyperglycemia

== ENCOUNTER → 2019-08-29 | Outpatient (CLI) | payer OTHER ==
--- NOTE | 2019-08-29 16:42 | REP ---
REASON: Back pain. There are no priors for comparison. There is degenerative disc space narrowing with anterior and posterior osteophytic ridging seen at the L5-S1 level. The remainder of the disc spaces are within normal limits. There is minimal anterior lipping at all other levels. There is some straightening of the lumbar lordosis. Vertebral height and alignment is within normal limits. The pedicles are intact bilaterally. There is no evidence of spondylolysis or spondylolisthesis. IMPRESSION: Chronic changes as described above. Electronically Signed by Jayden Alfaro DO 08/29/2019 05:07 P
== END ==
LOC: M ADAMS 13:30
PROVIDERS: ATTEND Physician Assistant Medical
DX: M54.41 Lumbago with sciatica, right side (principal); M54.42 Lumbago with sciatica, left side; M51.37 Other intervertebral disc degeneration, lumbosacral region

== ENCOUNTER → 2019-10-17 | Outpatient (REF) | payer OTHER ==
[~2019-10-17] MED LIST changes: -AMLO10TA5 PO; +AMLO1TAB24 PO; +AMLO1TAB25 PO; -AMLO5TAB6 PO; -ASPI81TA85 PO; +ASPI81TA86 PO; +PANT40TA29 PO; -PANT40TA3 PO
== END ==
LOC: M SFHCWAGY 09:59
PROVIDERS: ATTEND Nurse Practitioner Women's Health
DX: Z12.4 Encounter for screening for malignant neoplasm of cervix (principal)

== ENCOUNTER → 2019-10-17 | Outpatient (CLI) | payer OTHER ==
--- NOTE | 2019-11-05 11:09 | REPMRS ---
Patient History The patient states she had a clinical breast exam in 10/2019. No known family history of cancer. No Hormone Replacement Therapy Digital Woman Screen Mammo: October 17, 2019 - Exam #: [id number] Bilateral CC and MLO view(s) were taken. Technologist: Germaine Jarrett, Technologist No prior studies available for comparison. FINDINGS: There are scattered fibroglandular densities. The Volpara volumetric breast density category is: B. There is no evidence of dominant mass, architectural distortion, or grouped microcalcification typical of malignancy. 3-D tomosynthesis shows no additional findings. Report was delayed due to a protracted computer network disruption experienced by this facility. Assessment: BI-RADS/ACR category 1 mammogram. Negative Mammogram. Recommendation Routine screening mammogram of both breasts in 1 year (for women over age 40). This patient's Lifetime Breast Cancer RIsk is estimated at 7.2 %. This mammogram was interpreted with the aid of an FDA-approved computer-aided dectection system. Electronically Signed By: Primo Vang MD 11/05/19 1334
== END ==
LOC: M WHC 17:46
PROVIDERS: ATTEND Nurse Practitioner Women's Health
DX: Z12.31 Encounter for screening mammogram for malignant neoplasm of breast (principal)

== ENCOUNTER → 2019-12-15 | Outpatient (CLI) | payer OTHER ==
--- NOTE | 2019-12-22 18:08 | REP ---
RENAL ULTRASOUND HISTORY: Kidney stones. TECHNIQUE: Real-time sonographic evaluation of the kidneys is performed. FINDINGS: Kidneys are normal in size and echotexture, right kidney measuring 12.1 x 7.0 x 5.4 cm and left kidney 11.9 x 5.4 x 6.3 cm. Mildly prominent left renal pelvis is felt to represent an extrarenal pelvis. There is no hydronephrosis bilaterally. No definite renal stone is seen sonographically bilaterally. Renal cortex is mildly lobulated bilaterally. Urinary bladder is poorly distended. With Doppler color evaluation, the ureteral jets could not be visualized. IMPRESSION: Mild extrarenal pelvis on the left without evidence of hydronephrosis. No definite renal stone bilaterally. MTDD
== END ==
LOC: M RAD 10:56
PROVIDERS: ATTEND Urology
DX: Z87.442 Personal history of urinary calculi (principal)

== ENCOUNTER → 2020-06-18 | Outpatient (REF) | payer OTHER ==
[~2020-06-18] MED LIST changes: -LISI40TA PO; +LISI40TA4 PO
[2020-06-18 12:41] LABS: BASO % 0.5 % (0.0-1.0); EOS # 0.2 10^3/uL (0.0-0.5); EOS % 2.4 % (0.0-3.0); HEMATOCRIT 39.3 % (36.0-47.0); LYMPH # 1.9 10^3/uL (1.5-5.0); MEAN CORPUSCULAR HEMOGLOBIN 31.2 pg (27.0-33.0); MEAN CORPUSCULAR HGB CONC 33.1 g/dl (32.0-36.5); MEAN CORPUSCULAR VOLUME 94.2 fl (80.0-96.0); MONO # 0.6 10^3/uL (0.0-0.8); NEUTROPHILS # 4.8 10^3/uL (1.5-8.5); NEUTROPHILS % 63.7 % (36.0-66.0); PLATELET COUNT, AUTOMATED 254 10^3/uL (150-450); RED BLOOD COUNT 4.17 10^6/uL (4.00-5.40); WHITE BLOOD COUNT 7.5 10^3/uL (4.0-10.0)
[2020-06-18 12:55] LABS: HEMOGLOBIN A1c 11.6 %
[2020-06-18 13:17] LABS: ALBUMIN 3.4 GM/DL (3.2-5.2); ALT/SGPT 19 U/L (12-78); BILIRUBIN,TOTAL 0.3 MG/DL (0.2-1.0); BLOOD UREA NITROGEN 13 MG/DL (7-18); CALCIUM LEVEL 8.7 MG/DL (8.5-10.1); CARBON DIOXIDE LEVEL 26 MEQ/L (21-32); CHLORIDE LEVEL 107 MEQ/L (98-107); CHOLESTEROL LEVEL 173 MG/DL (<200); CREATININE FOR GFR 0.97 MG/DL (0.55-1.30); FERRITIN 45 NG/ML (8-252); GLOMERULAR FILTRATION RATE > 60.0 (>58); GLUCOSE, FASTING 348 MG/DL (70-100); HDL CHOLESTEROL 49 MG/DL (>40); IRON (FE) 110 UG/DL (50-170); LDL CHOLESTEROL 88 MG/DL (<100); NON-HDL-C 124 MG/DL; PERCENT SATURATION 40.1 % (13.2-45.0); POTASSIUM SERUM 4.3 MEQ/L (3.5-5.1); SODIUM LEVEL 139 MEQ/L (136-145); TOTAL IRON BINDING CAPACITY 274 UG/DL (250-450); TOTAL PROTEIN 6.9 GM/DL (6.4-8.2); TRIGLYCERIDES LEVEL 182 MG/DL (<150)
[2020-06-18 13:25] LABS: TOTAL 25(OH) VITAMIN D 11.3 NG/ML (30.0-100.0)
[2020-06-18 13:27] LABS: CREATININE, URINE 55.2 MG/DL; MAU/CREAT RATIO 963.7 MCG/MG (0.0-30.0)
== END ==
LOC: M SFHCADAM 10:11
PROVIDERS: ATTEND Physician Assistant Medical
DX: E66.01 Morbid (severe) obesity due to excess calories (principal); I10 Essential (primary) hypertension; E78.2 Mixed hyperlipidemia; K21.9 Gastro-esophageal reflux disease without esophagitis; D50.8 Other iron deficiency anemias; E11.65 Type 2 diabetes mellitus with hyperglycemia

== ENCOUNTER 2020-07-16 06:44 | Emergency (ER) | payer OTHER ==
[~2020-07-16] VITALS: Ht 160 cm; Wt 99.9 kg
[2020-07-16] MEDS ORDERED: MELO15TA28 PO (06:55)
[2020-07-16] MEDS ORDERED: ONDANSETRON 4MG/2ML VIAL IV ONE (07:40)
[2020-07-16] MEDS ORDERED: MORPHINE 4 MG/ML 1ML VIAL/SYRINGE (J2270) IV ONE (07:40)
[2020-07-16] MEDS ORDERED: NS 1,000 ML IV ONE (07:40)
[2020-07-16 08:30] LABS: BASO # 0.1 10^3/uL (0.0-0.2); BASO % 0.7 % (0.0-1.0); EOS # 0.2 10^3/uL (0.0-0.5); EOS % 2.6 % (0.0-3.0); HEMATOCRIT 38.8 % (36.0-47.0); HEMOGLOBIN 13.1 g/dl (12.0-15.5); LYMPH # 1.6 10^3/uL (1.5-5.0); LYMPH % 21.6 % (24.0-44.0); MEAN CORPUSCULAR HEMOGLOBIN 31.5 pg (27.0-33.0); MEAN CORPUSCULAR HGB CONC 33.8 g/dl (32.0-36.5); MEAN CORPUSCULAR VOLUME 93.3 fl (80.0-96.0); MONO # 0.5 10^3/uL (0.0-0.8); MONO % 6.7 % (2.0-8.0); NEUTROPHILS # 5.2 10^3/uL (1.5-8.5); NEUTROPHILS % 67.7 % (36.0-66.0); PLATELET COUNT, AUTOMATED 289 10^3/uL (150-450); RED BLOOD COUNT 4.16 10^6/uL (4.00-5.40); WHITE BLOOD COUNT 7.6 10^3/uL (4.0-10.0)
--- NOTE | 2020-07-16 08:30 | REP ---
INDICATION: R flank pain, h/o kidney stones COMPARISON: 02/27/2019 TECHNIQUE: Axial noncontrast images from the lung bases to the pubic symphysis with coronal and sagittal reformations. This CT examination was performed using the following dose reduction techniques: Automated exposure control, adjustment of mA and/or kv according to the patient's size, and use of iterative reconstruction technique. FINDINGS: Lung bases are clear. Visualized heart and pericardium normal. Liver, spleen, pancreas, gallbladder, and bilateral adrenal glands are normal. Kidneys demonstrate mild relatively symmetric chronic appearing perinephric stranding along with few bilateral nonobstructing nephroliths up to roughly 3 mm. No hydroureteronephrosis or obstructing ureteral calculus. The enteric system is unremarkable and without obstruction or acute inflammatory process. Normal terminal ileum and appendix identified in the right lower quadrant. Pelvis demonstrates normal bladder and age-appropriate uterus/adnexa. No ascites. No free air. No adenopathy. No focal inflammatory stranding. Abdominal aorta without aneurysm. Musculoskeletal structures are intact and without acute osseous abnormality. IMPRESSION: No acute abdominopelvic pathology appreciated. Few bilateral nonobstructing nephroliths up to 3 mm. <Electronically signed by Tom Lopez > 07/16/20 [id number]
[2020-07-16] MEDS ORDERED: KETOROLAC 30 MG/ML 1ML VIAL IV ONE (08:35)
[2020-07-16 09:03] LABS: ALBUMIN 3.7 GM/DL (3.2-5.2); ALT/SGPT 21 U/L (12-78); BILIRUBIN,DIRECT < 0.1 MG/DL (0.0-0.2); BILIRUBIN,TOTAL 0.2 MG/DL (0.2-1.0); CK-MB VALUE MASS < 1.0 NG/ML (<3.6); CPK CREATINE PHOSPHOKINASE 76 U/L (26-192); LIPASE 125 U/L (73-393); MB/CK RELATIVE INDEX 1.32 (< OR =4); TOTAL PROTEIN 7.5 GM/DL (6.4-8.2); TROPONIN I < 0.02 NG/ML (< 0.10)
--- NOTE | 2020-07-16 09:06 | REP ---
INDICATION: RUQ TTP. COMPARISON: 09/11/2015. TECHNIQUE: Real-time sonographic evaluation of right upper quadrant performed. FINDINGS: There is mild sludge in the gallbladder without evidence of shadowing gallstones. There is no gallbladder wall thickening or pericholecystic fluid.. There is no intrahepatic or extrahepatic biliary dilatation, common bile duct measures 4 mm in maximum diameter. The liver demonstrates homogeneous echotexture with no gross mass. The pancreas demonstrates homogeneous echotexture with no gross mass. The right kidney demonstrates no hydronephrosis, with a normal size of 12.3 cm in length. No free fluid is seen. IMPRESSION: Mild sludge in the gallbladder, otherwise negative right upper quadrant ultrasound. <Electronically signed by Lee Del Rio > 07/16/20 0912
[2020-07-16] MEDS ORDERED: fentaNYL 100 MCG/2 ML INJECTION (J3010) IV ONE (09:45)
--- NOTE | 2020-07-16 09:54 | REP ---
INDICATION: RUQ pain COMPARISON: 04/12/2019 TECHNIQUE: Portable AP view of the chest FINDINGS: The mediastinum and cardiac silhouette are stable and within normal limits for portable technique. The lung galeas are clear without acute consolidation, effusion, or pneumothorax. Skeletal structures are intact. IMPRESSION: No acute cardiopulmonary process appreciated. <Electronically signed by Tom Lopez > 07/16/20 0915
[2020-07-16] MEDS ORDERED: CYCLOBENZAPRINE 10MG TABLET PO ONE (11:45)
[2020-07-16] MEDS ORDERED: LIDO5DIS41 TOP (11:56)
[2020-07-16] MEDS ORDERED: CYCL5TAB PO (11:56)
[2020-07-16 12:00] VITALS: BP 171/87
[2020-07-16] MEDS ORDERED: LIDOCAINE 5% (LIDODERM) PATCH TD ONE (12:00)
--- NOTE | 2020-07-16 18:42 | ECGEPIP ---
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
[2020-07-16] MEDS ORDERED: **NOTE PATIENT COMMENT** MISC XX SCH (21:00)
== END 2020-07-16 12:28 | disposition home or self-care (01) ==
LOC: M ED 06:44
DX: M62.830 Muscle spasm of back (principal); N20.0 Calculus of kidney; K82.4 Cholesterolosis of gallbladder; E11.9 Type 2 diabetes mellitus without complications; Z79.4 Long term (current) use of insulin; I10 Essential (primary) hypertension; K21.9 Gastro-esophageal reflux disease without esophagitis
CPT/HCPCS: 71045; 74176; 76705; 80047; 80076; 81001; 82550; 82553; 83690; 85025; 87086; 93005; 96361; 96374; 96375; 99284; J1885; J3010

== ENCOUNTER → 2020-07-20 | Outpatient (CLI) | payer OTHER ==
[~2020-07-20] MED LIST changes: +CYCL5TAB PO; +LIDO5DIS41 TOP; +MELO15TA28 PO
--- NOTE | 2020-07-21 07:53 | REP ---
INDICATION: ACUTE RIGHT SIDED THORACIC BACK PAIN COMPARISON: None. TECHNIQUE: AP, lateral, and swimmers views. FINDINGS: Alignment and kyphosis is maintained. Vertebral bodies intact. No acute fracture / compression injury or subluxation. No degenerative changes. Paravertebral soft tissues are normal. IMPRESSION: Normal thoracic spine series. <Electronically signed by Tom Lopez > 07/21/20 0765
== END ==
LOC: M ADAMS 11:34
PROVIDERS: ATTEND Physician Assistant Medical
DX: M54.6 Pain in thoracic spine (principal)

== ENCOUNTER → 2020-08-31 | Outpatient (CLI) | payer OTHER ==
--- NOTE | 2020-08-31 15:14 | REP ---
INDICATION: GB SLUDGE. COMPARISON: None TECHNIQUE/RADIOTRACER AND DOSE: FOLLOWING THE INTRAVENOUS ADMINISTRATION OF 6.6 MCI TECHNETIUM 99 M-MEBROFENIN, MULTIPLE IMAGES OF THE RIGHT UPPER QUADRANT ARE PERFORMED FOR 60 MINUTES. NEXT 8 OZ OF ENSURE ENLIVE IS INGESTED AND FURTHER IMAGING IS PERFORMED FOR 65 MINUTES. FINDINGS: THE GALLBLADDER IS VISUALIZED AT 25 MINUTES POST INJECTION. THERE IS BILIARY TO BOWEL TRANSIT AT 15MINUTES POST INJECTION. THERE IS NO SCINTIGRAPHIC EVIDENCE OF CHOLECYSTITIS. GALLBLADDER EJECTION FRACTION IS CALCULATED TO BE % WHICH IS 12 below NORMAL. A normal ejection fraction is greater than 35%. IMPRESSION: Low gallbladder ejection fraction of 12%. <Electronically signed by Lee Del Rio > 08/31/20 2424
== END ==
LOC: M RAD 08:54
PROVIDERS: ATTEND Physician Assistant Medical
DX: K82.8 Other specified diseases of gallbladder (principal)
CPT/HCPCS: 78227; A9537

== ENCOUNTER → 2020-10-27 | Outpatient (CLI) | payer OTHER | LOC: M LABSMTC 11:50 | PROVIDERS: ATTEND Pediatrics | DX: Z20.828 Contact with and (suspected) exposure to other viral communicable diseases (principal); Z11.59 Encounter for screening for other viral diseases | CPT/HCPCS: C9803; U0003 ==

== ENCOUNTER → 2020-11-05 | Outpatient (REF) | payer OTHER ==
[2020-11-05 12:50] LABS: CREATININE, URINE 42.2 MG/DL; MAU/CREAT RATIO 350.7 MCG/MG (0.0-30.0)
[2020-11-05 13:22] LABS: CALCIUM LEVEL 9.7 MG/DL (8.5-10.1); CREATININE FOR GFR 1.54 MG/DL (0.55-1.30); GLOMERULAR FILTRATION RATE 38.6 (>58); POTASSIUM SERUM 4.9 MEQ/L (3.5-5.1)
== END ==
LOC: M LABDRAWC 11:33
PROVIDERS: ATTEND Nurse Practitioner Family
DX: E11.65 Type 2 diabetes mellitus with hyperglycemia (principal)

== ENCOUNTER → 2020-11-30 | Outpatient (CLI) | payer OTHER ==
[2020-11-30 16:43] LABS: CALCIUM LEVEL 9.1 MG/DL (8.5-10.1); CREATININE FOR GFR 1.12 MG/DL (0.55-1.30); GLOMERULAR FILTRATION RATE 55.8 (>58); POTASSIUM SERUM 4.1 MEQ/L (3.5-5.1)
== END ==
LOC: M WUC 14:36
PROVIDERS: ATTEND Nurse Practitioner Family
DX: E11.65 Type 2 diabetes mellitus with hyperglycemia (principal)

== ENCOUNTER → 2021-02-14 | Outpatient (CLI) | payer OTHER ==
[2021-02-14 18:02] LABS: CALCIUM LEVEL 9.1 MG/DL (8.5-10.1); CREATININE FOR GFR 1.13 MG/DL (0.55-1.30); GLOMERULAR FILTRATION RATE 55.2 (>58); POTASSIUM SERUM 4.4 MEQ/L (3.5-5.1)
== END ==
LOC: M WUC 10:52
PROVIDERS: ATTEND Nurse Practitioner Family
DX: E11.65 Type 2 diabetes mellitus with hyperglycemia (principal)

== ENCOUNTER → 2021-05-02 | Outpatient (CLI) | payer OTHER | LOC: M RAD 14:01 | PROVIDERS: ATTEND Urology | DX: N20.0 Calculus of kidney (principal) ==

== ENCOUNTER → 2021-12-16 | Outpatient (REF) | payer OTHER ==
[2021-12-16 19:07] LABS: MAU/CREAT RATIO 375.5 MCG/MG (0.0-30.0)
== END ==
LOC: M LAB REF 16:51
PROVIDERS: ATTEND Nurse Practitioner Family
DX: E11.65 Type 2 diabetes mellitus with hyperglycemia (principal)

== ENCOUNTER → 2022-05-17 | Outpatient (CLI) | payer OTHER | LOC: M RAD 15:28 | PROVIDERS: ATTEND Urology | DX: N20.0 Calculus of kidney (principal) ==

== ENCOUNTER → 2022-07-20 | Outpatient (CLI) | payer OTHER ==
[2022-07-20 11:21] LABS: BASO % 0.5 % (0.0-1.0); EOS # 0.3 10^3/uL (0.0-0.5); EOS % 3.5 % (0.0-3.0); HEMATOCRIT 39.6 % (36.0-47.0); HEMOGLOBIN 12.7 g/dl (12.0-15.5); LYMPH # 2.6 10^3/uL (1.5-5.0); LYMPH % 30.4 % (24.0-44.0); MEAN CORPUSCULAR HEMOGLOBIN 30.8 pg (27.0-33.0); MEAN CORPUSCULAR HGB CONC 32.1 g/dl (32.0-36.5); MEAN CORPUSCULAR VOLUME 95.9 fl (80.0-96.0); MONO # 0.6 10^3/uL (0.0-0.8); MONO % 7.3 % (2.0-8.0); NEUTROPHILS # 4.9 10^3/uL (1.5-8.5); NEUTROPHILS % 58.1 % (36.0-66.0); PLATELET COUNT, AUTOMATED 285 10^3/uL (150-450); RED BLOOD COUNT 4.13 10^6/uL (4.00-5.40); WHITE BLOOD COUNT 8.5 10^3/uL (4.0-10.0)
[2022-07-20 11:51] LABS: ALBUMIN 3.8 G/DL (3.2-5.2); BILIRUBIN,TOTAL 0.3 MG/DL (0.3-1.2); CALCIUM LEVEL 9.6 MG/DL (8.5-10.1); CHOLESTEROL RISK RATIO 4.33 (<5); CREATININE FOR GFR 1.07 MG/DL (0.55-1.30); GLOMERULAR FILTRATION RATE 58.5 (>58); HDL CHOLESTEROL 43.8 MG/DL (>40); LDL CHOLESTEROL 113.2 MG/DL (<100); NON-HDL-C 146.2 MG/DL; POTASSIUM SERUM 4.5 MMOL/L (3.5-5.1); THYROID STIMULATING HORMONE 1.847 uIU/ML (0.55-4.78); TOTAL PROTEIN 7.6 G/DL (5.7-8.2)
[2022-07-20 11:52] LABS: FERRITIN 36.4 NG/ML (7.3-270.7); TOTAL 25(OH) VITAMIN D 16.2 NG/ML (20.0-100.0)
[2022-07-20 11:53] LABS: FREE T4 0.85 NG/DL (0.89-1.76)
== END ==
LOC: M LAB 10:25
PROVIDERS: ATTEND Physician Assistant Medical
DX: D50.8 Other iron deficiency anemias (principal); F32.2 Major depressive disorder, single episode, severe without psychotic features; E11.65 Type 2 diabetes mellitus with hyperglycemia; E78.5 Hyperlipidemia, unspecified

== ENCOUNTER → 2022-08-14 | Outpatient (CLI) | payer OTHER | LOC: M CARPUL 09:38 | PROVIDERS: ATTEND Physician Assistant Medical | DX: R60.1 Generalized edema (principal) ==

== ENCOUNTER → 2022-11-17 | Outpatient (CLI) | payer OTHER ==
[2022-11-17 09:49] LABS: BASO # 0.1 10^3/uL (0.0-0.2); BASO % 0.6 % (0.0-1.0); EOS # 0.2 10^3/uL (0.0-0.5); EOS % 2.5 % (0.0-3.0); HEMATOCRIT 35.8 % (36.0-47.0); HEMOGLOBIN 11.7 g/dl (12.0-15.5); LYMPH # 2.3 10^3/uL (1.5-5.0); MEAN CORPUSCULAR HGB CONC 32.7 g/dl (32.0-36.5); MEAN CORPUSCULAR VOLUME 94.7 fl (80.0-96.0); MONO # 0.5 10^3/uL (0.0-0.8); MONO % 6.9 % (2.0-8.0); NEUTROPHILS # 4.8 10^3/uL (1.5-8.5); NEUTROPHILS % 60.7 % (36.0-66.0); PLATELET COUNT, AUTOMATED 251 10^3/uL (150-450); RED BLOOD COUNT 3.78 10^6/uL (4.00-5.40); WHITE BLOOD COUNT 7.9 10^3/uL (4.0-10.0)
[2022-11-17 10:01] LABS: HEMOGLOBIN A1c 11.9 % (4.0-6.0)
[2022-11-17 10:23] LABS: IRON (FE) 173 UG/DL (50-170)
[2022-11-17 10:24] LABS: CREATININE, URINE 153.4 MG/DL; MAU/CREAT RATIO 74.3 MCG/MG (0.0-30.0)
[2022-11-17 12:17] LABS: ALBUMIN 3.7 G/DL (3.2-5.2); ALKALINE PHOSPHATASE 69 U/L (46-116); ALT/SGPT 14 U/L (7.0-40); AST/SGOT < 8 U/L (<34); BILIRUBIN,TOTAL 0.5 MG/DL (0.3-1.2); BLOOD UREA NITROGEN 23 MG/DL (9-23); CALCIUM LEVEL 9.3 MG/DL (8.5-10.1); CARBON DIOXIDE LEVEL 25 MMOL/L (20-31); CHLORIDE LEVEL 106 MMOL/L (98-107); CHOLESTEROL LEVEL 156 MG/DL (<200); CHOLESTEROL RISK RATIO 4.01 (<5); CREATININE FOR GFR 1.17 MG/DL (0.55-1.30); GLOMERULAR FILTRATION RATE 52.6 (>58); GLUCOSE, FASTING 175 MG/DL (60-100); HDL CHOLESTEROL 38.9 MG/DL (>40); LDL CHOLESTEROL 85.5 MG/DL (<100); MAGNESIUM LEVEL 1.5 MG/DL (1.8-2.4); NON-HDL-C 117.1 MG/DL; POTASSIUM SERUM 4.5 MMOL/L (3.5-5.1); SODIUM LEVEL 140 MMOL/L (136-145); THYROID STIMULATING HORMONE 1.826 uIU/ML (0.55-4.78); TOTAL 25(OH) VITAMIN D 70.1 NG/ML (20.0-100.0); TOTAL PROTEIN 7.4 G/DL (5.7-8.2); TRIGLYCERIDES LEVEL 158 MG/DL (<150); VITAMIN B12 LEVEL 1374 PG/ML (211-911)
== END ==
LOC: M LAB 08:58
PROVIDERS: ATTEND Physician Assistant Medical
DX: I50.32 Chronic diastolic (congestive) heart failure (principal); I11.0 Hypertensive heart disease with heart failure; E11.65 Type 2 diabetes mellitus with hyperglycemia; E55.9 Vitamin D deficiency, unspecified; E66.01 Morbid (severe) obesity due to excess calories; F32.2 Major depressive disorder, single episode, severe without psychotic features; D50.8 Other iron deficiency anemias

== ENCOUNTER → 2022-11-23 | Outpatient (REF) | payer OTHER ==
[2022-11-23 14:19] LABS: C REACTIVE PROTEIN QUANTITATIV 0.5 MG/DL (<1.0)
[2022-11-25 19:03] LABS: COMPLEMENT C4 31.7 MG/DL (12-36)
[2022-11-27 09:40] LABS: DRVV SCREEN 37.8 SECONDS
[2022-11-27 10:12] LABS: PTT LUPUS TYPE ANTICOAG SCREEN 0.94 (0-1.20)
== END ==
LOC: M SFHCADAM 10:08
PROVIDERS: ATTEND Physician Assistant Medical
DX: M25.50 Pain in unspecified joint (principal)

== ENCOUNTER → 2023-04-10 | Outpatient (CLI) | payer OTHER ==
[2023-04-10 08:49] LABS: BASO % 0.3 % (0.0-1.0); EOS # 0.3 10^3/uL (0.0-0.5); EOS % 3.1 % (0.0-3.0); HEMATOCRIT 36.1 % (36.0-47.0); LYMPH # 2.2 10^3/uL (1.5-5.0); LYMPH % 24.7 % (24.0-44.0); MEAN CORPUSCULAR HEMOGLOBIN 31.1 pg (27.0-33.0); MEAN CORPUSCULAR HGB CONC 33.2 g/dl (32.0-36.5); MEAN CORPUSCULAR VOLUME 93.5 fl (80.0-96.0); MONO # 0.5 10^3/uL (0.0-0.8); NEUTROPHILS # 5.7 10^3/uL (1.5-8.5); NEUTROPHILS % 65.4 % (36.0-66.0); PLATELET COUNT, AUTOMATED 263 10^3/uL (150-450); RED BLOOD COUNT 3.86 10^6/uL (4.00-5.40); WHITE BLOOD COUNT 8.7 10^3/uL (4.0-10.0)
[2023-04-10 09:12] LABS: CREATININE, URINE 71.4 MG/DL; MAU/CREAT RATIO 40.6 MCG/MG (0.0-30.0)
[2023-04-10 09:13] LABS: CHOLESTEROL RISK RATIO 4.56 (<5); LDL CHOLESTEROL 95.6 MG/DL (<100)
[2023-04-10 09:16] LABS: THYROID STIMULATING HORMONE 2.557 uIU/ML (0.55-4.78); TOTAL 25(OH) VITAMIN D 71.1 NG/ML (20.0-100.0)
[2023-04-10 09:59] LABS: HEMOGLOBIN A1c 11.2 % (4.0-6.0)
== END ==
LOC: M LAB 08:17
PROVIDERS: ATTEND Physician Assistant Medical
DX: E66.01 Morbid (severe) obesity due to excess calories (principal); I11.0 Hypertensive heart disease with heart failure; E78.2 Mixed hyperlipidemia; K76.0 Fatty (change of) liver, not elsewhere classified; K21.9 Gastro-esophageal reflux disease without esophagitis; I50.32 Chronic diastolic (congestive) heart failure; E55.9 Vitamin D deficiency, unspecified; E11.65 Type 2 diabetes mellitus with hyperglycemia

== ENCOUNTER → 2023-06-21 | Outpatient (CLI) | payer OTHER | LOC: M RAD 14:07 | PROVIDERS: ATTEND Urology | DX: N20.0 Calculus of kidney (principal) ==

== ENCOUNTER → 2023-09-10 | Outpatient (REF) | payer OTHER ==
[2023-09-10 21:16] LABS: CALCIUM LEVEL 9.3 MG/DL (8.5-10.1); CREATININE FOR GFR 1.29 MG/DL (0.55-1.30); GLOMERULAR FILTRATION RATE 46.8 (>58); POTASSIUM SERUM 3.8 MMOL/L (3.5-5.1)
== END ==
LOC: M LAB REF 19:59
PROVIDERS: ATTEND Urology
DX: C64.2 Malignant neoplasm of left kidney, except renal pelvis (principal)

== ENCOUNTER → 2023-09-12 | Outpatient (CLI) | payer OTHER ==
[~2023-09-12] MED LIST changes: +ISOVUE-370 76% 100ML VIAL As Ordered ONE
== END ==
LOC: M RAD 07:51
PROVIDERS: ATTEND Urology
DX: C64.2 Malignant neoplasm of left kidney, except renal pelvis (principal)
CPT/HCPCS: 74170; Q9967

== ENCOUNTER 2024-02-14 05:54 | Emergency (ER) | payer OTHER ==
[~2024-02-14] VITALS: Ht 154.9 cm; Wt 100.7 kg
[~2024-02-14 05:54] MED LIST changes: -CYCL5TAB PO; +CYCL5TAB4 PO; -ISOVUE-370 76% 100ML VIAL As Ordered ONE
[2024-02-14 08:27] VITALS: BP 142/78; TEMP 98; O2SAT 98
[2024-02-14] MEDS: ACETAMINOPHEN 500 MG TAB PO ONE (08:32)
[2024-02-14] MEDS: IBUPROFEN 600MG TAB PO ONE (08:33)
== END 2024-02-14 08:48 | disposition home or self-care (01) ==
LOC: M ED 05:54
DX: M72.2 Plantar fascial fibromatosis (principal); M76.62 Achilles tendinitis, left leg; M61.2 Paralytic calcification and ossification of muscle; M77.32 Calcaneal spur, left foot; E11.9 Type 2 diabetes mellitus without complications; I10 Essential (primary) hypertension; Z79.82 Long term (current) use of aspirin; Z79.4 Long term (current) use of insulin; Z79.899 Other long term (current) drug therapy

== ENCOUNTER → 2024-07-03 | Outpatient (REF) | payer OTHER ==
[2024-07-03 17:26] LABS: BASO % 0.4 % (0.0-1.0); EOS # 0.3 10^3/uL (0.0-0.5); EOS % 3.4 % (0.0-3.0); HEMATOCRIT 38.1 % (36.0-47.0); HEMOGLOBIN 12.4 g/dl (12.0-15.5); LYMPH # 1.7 10^3/uL (1.5-5.0); LYMPH % 20.9 % (24.0-44.0); MEAN CORPUSCULAR HEMOGLOBIN 31.7 pg (27.0-33.0); MEAN CORPUSCULAR HGB CONC 32.5 g/dl (32.0-36.5); MEAN CORPUSCULAR VOLUME 97.4 fl (80.0-96.0); MONO # 0.6 10^3/uL (0.0-0.8); MONO % 7.9 % (2.0-8.0); NEUTROPHILS # 5.5 10^3/uL (1.5-8.5); NEUTROPHILS % 67.2 % (36.0-66.0); PLATELET COUNT, AUTOMATED 301 10^3/uL (150-450); RED BLOOD COUNT 3.91 10^6/uL (4.00-5.40); WHITE BLOOD COUNT 8.1 10^3/uL (4.0-10.0)
[2024-07-03 17:36] LABS: ALBUMIN 3.7 G/DL (3.2-5.2); ALKALINE PHOSPHATASE 73 U/L (35-104); ALT/SGPT 18 U/L (7.0-40); AST/SGOT 18 U/L (<34); BILIRUBIN,TOTAL 0.3 MG/DL (0.3-1.2); BLOOD UREA NITROGEN 37 MG/DL (9-23); CALCIUM LEVEL 9.8 MG/DL (8.5-10.1); CARBON DIOXIDE LEVEL 23 MMOL/L (20-31); CHLORIDE LEVEL 110 MMOL/L (98-107); CHOLESTEROL LEVEL 198 MG/DL (<200); CHOLESTEROL RISK RATIO 4.78 (<5); CREATININE FOR GFR 1.18 MG/DL (0.55-1.30); FREE T4 0.77 NG/DL (0.89-1.76); GLOMERULAR FILTRATION RATE 56.6 (>58); GLUCOSE, FASTING 87 MG/DL (60-100); HDL CHOLESTEROL 41.4 MG/DL (>40); IRON (FE) 94 UG/DL (50-170); LDL CHOLESTEROL 123.2 MG/DL (<100); NON-HDL-C 156.6 MG/DL; PERCENT SATURATION 30.3 % (13.2-45.0); POTASSIUM SERUM 4.4 MMOL/L (3.5-5.1); SODIUM LEVEL 142 MMOL/L (136-145); TOTAL IRON BINDING CAPACITY 310 UG/DL (250-425); TOTAL PROTEIN 7.6 G/DL (5.7-8.2); TRIGLYCERIDES LEVEL 167 MG/DL (<150)
[2024-07-03 17:37] LABS: FERRITIN 52.5 NG/ML (7.3-270.7)
[2024-07-03 17:38] LABS: TOTAL 25(OH) VITAMIN D 71.3 NG/ML (20.0-100.0)
[2024-07-03 17:46] LABS: VITAMIN B12 LEVEL > 2000 PG/ML (211-911)
[2024-07-03 20:07] LABS: HEMOGLOBIN A1c > 14.0 % (4.0-6.0)
== END ==
LOC: M SFHCCLAY 10:11
PROVIDERS: ATTEND Nurse Practitioner Family
DX: K21.9 Gastro-esophageal reflux disease without esophagitis (principal); K76.0 Fatty (change of) liver, not elsewhere classified; E11.65 Type 2 diabetes mellitus with hyperglycemia; I11.0 Hypertensive heart disease with heart failure; E55.9 Vitamin D deficiency, unspecified; F33.1 Major depressive disorder, recurrent, moderate; D50.8 Other iron deficiency anemias; I50.32 Chronic diastolic (congestive) heart failure

== ENCOUNTER → 2024-11-20 | Outpatient (REF) | payer OTHER ==
[~2024-11-20] MED LIST changes: +ATOR40TA75 PO; -IBUP-1022 PO; +IBUP600T42 PO; +LIDO1ADH93 TOP; -LIDO5DIS41 TOP; +LISI40TA10 PO; -LISI40TA4 PO; +TIRZ2.5P SQ
[2024-11-20 18:56] LABS: ALT/SGPT 16.0 U/L (7.0-40); AST/SGOT 16.0 U/L (<34); C REACTIVE PROTEIN QUANTITATIV < 0.50 MG/DL (<1.0); CALCIUM LEVEL 10.0 MG/DL (8.5-10.1); CARBON DIOXIDE LEVEL 23.0 MMOL/L (20-31); CHLORIDE LEVEL 111.0 MMOL/L (98-107); CHOLESTEROL LEVEL 151.0 MG/DL (<200); CHOLESTEROL RISK RATIO 3.83 (<5); CREATININE FOR GFR 1.18 MG/DL (0.55-1.30); GLOMERULAR FILTRATION RATE 56.3 (>51); LDL CHOLESTEROL 67.6 MG/DL (<100); NON-HDL-C 111.6 MG/DL; POTASSIUM SERUM 4.7 MMOL/L (3.5-5.1); SODIUM LEVEL 144.0 MMOL/L (136-145); TRIGLYCERIDES LEVEL 220.0 MG/DL (<150)
[2024-11-20 18:57] LABS: BASO # 0.1 10^3/uL (0.0-0.2); BASO % 0.7 % (0.0-1.0); EOS # 0.3 10^3/uL (0.0-0.5); EOS % 2.9 % (0.0-3.0); LYMPH # 2.2 10^3/uL (1.5-5.0); LYMPH % 25.4 % (24.0-44.0); MONO # 0.6 10^3/uL (0.0-0.8); MONO % 6.5 % (2.0-8.0); NEUTROPHILS # 5.5 10^3/uL (1.5-8.5); NEUTROPHILS % 64.1 % (36.0-66.0); PLATELET COUNT, AUTOMATED 319 10^3/uL (150-450)
[2024-11-20 19:00] LABS: RHEUMATOID FACTOR QUANT < 3.5 IU/ML (<14)
[2024-11-20 19:23] LABS: ESTIMATED AVERAGE GLUCOSE 235.0 MG/DL (60-110)
[2024-11-20 19:26] LABS: ERYTHROCYTE SEDIMENTATION RATE 39 mm/hr (0-30)
[2024-11-26 20:31] LABS: LYME TOTAL ANTIBODY CIA <= 0.90 Index (<=0.90)
[2024-11-27 15:42] LABS: HLA-B27 Negative (Negative)
== END ==
LOC: M SFHCCLAY 09:35
PROVIDERS: ATTEND Nurse Practitioner Family
DX: I10 Essential (primary) hypertension (principal); E11.65 Type 2 diabetes mellitus with hyperglycemia; K21.9 Gastro-esophageal reflux disease without esophagitis; K76.0 Fatty (change of) liver, not elsewhere classified; E55.9 Vitamin D deficiency, unspecified; F33.1 Major depressive disorder, recurrent, moderate; D50.8 Other iron deficiency anemias; M25.50 Pain in unspecified joint

== ENCOUNTER → 2025-02-19 | Outpatient (CLI) | payer OTHER | LOC: M CLY 09:56 | PROVIDERS: ATTEND Nurse Practitioner Family | DX: M25.552 Pain in left hip (principal) ==

== ENCOUNTER → 2025-02-19 | Outpatient (REF) | payer OTHER ==
[2025-02-19 18:48] LABS: ALT/SGPT 17.0 U/L (7.0-40); AST/SGOT 15.0 U/L (<34); CALCIUM LEVEL 9.4 MG/DL (8.5-10.1); CARBON DIOXIDE LEVEL 27.0 MMOL/L (20-31); CHLORIDE LEVEL 105.0 MMOL/L (98-107); CHOLESTEROL LEVEL 166.0 MG/DL (<200); CHOLESTEROL RISK RATIO 4.62 (<5); CREATININE FOR GFR 1.15 MG/DL (0.55-1.30); GLOMERULAR FILTRATION RATE 58.0 (>51); LDL CHOLESTEROL 96.1 MG/DL (<100); NON-HDL-C 130.1 MG/DL; POTASSIUM SERUM 4.4 MMOL/L (3.5-5.1); SODIUM LEVEL 143.0 MMOL/L (136-145); TRIGLYCERIDES LEVEL 170.0 MG/DL (<150)
[2025-02-19 19:58] LABS: ESTIMATED AVERAGE GLUCOSE 249.0 MG/DL (60-110)
== END ==
LOC: M SFHCCLAY 09:16
PROVIDERS: ATTEND Nurse Practitioner Family
DX: I10 Essential (primary) hypertension (principal); E11.65 Type 2 diabetes mellitus with hyperglycemia; K21.9 Gastro-esophageal reflux disease without esophagitis; K76.0 Fatty (change of) liver, not elsewhere classified; E55.9 Vitamin D deficiency, unspecified; F33.1 Major depressive disorder, recurrent, moderate; D50.8 Other iron deficiency anemias